=== PATIENT | female | born 1945 | race Caucasian/White ===

== ENCOUNTER → 2023-06-21 10:49 | Outpatient (REF) | payer MEDICARE, SELFPAY ==
[2023-06-21 11:11] LABS: % Basophils 0.5 % (0-2); % Eosinophils 1.7 % (0-6); % Immature Granulocytes 0.3 % (0-0.5); % Lymphocytes 17.6 % (20.5-51.1); % Monocytes 7.3 % (1.7-9.3); % Neutrophils 72.6 % (42.2-75.2); Absolute Eosinophils 0.2 10^3/uL (0-0.7); Absolute Lymphocytes 1.5 10^3/uL (1.2-3.4); Absolute Monocytes 0.6 10^3/uL (0.1-0.6); Absolute Neutrophils 6.3 10^3/uL (1.4-6.5); Hematocrit 43.6 % (37.0-47.0); Hemoglobin 14.9 g/dL (12.0-16.0); Mean Corp Hgb Conc. 34.2 g/dL (33.0-37.0); Mean Corpuscular Hgb 29.6 pg (27.0-31.0); Mean Corpuscular Volume 86.7 fL (81.0-99.0); Mean Platelet Volume 9.4 fL (7.4-10.4); Nucleated Red Blood Cells % 0 %; Platelet Count 281 10^3/uL (130-400); Red Blood Cell Count 5.03 10^6/uL (4.20-5.40); Red Cell Dist. Width 14.2 % (11.5-14.5); White Blood Cell Count 8.6 10^3/uL (4.8-10.8)
[2023-06-21 12:21] LABS: ALT (SGPT) < 10 U/L (0-35); AST (SGOT) 22 U/L (14-36); Albumin 4.2 g/dl (3.5-5.0); Alkaline Phosphatase 73 U/L (38-126); Blood Urea Nitrogen 22 mg/dl (7-17); Calcium 9.8 mg/dl (8.4-10.2); Carbon Dioxide 26 mmol/L (22-30); Chloride 106 mmol/L (98-107); Glucose 100 mg/dl (70-99); Potassium 4.7 mmol/L (3.5-5.1); Sodium 137 mmol/L (135-145); Total Bilirubin 0.6 mg/dl (0.2-1.3); Total Protein 6.7 g/dl (6.3-8.2); eGFR 57.31
[2023-06-23 07:54] LABS: ANA, IgG Reflex to HEp-2 None Detected (None Detected)
[2023-06-23 15:26] LABS: SSA 52 (Ro)(ENA) Ab, IgG 1 AU/mL (0-40); SSA 60 (Ro)(ENA) Ab, IgG 0 AU/mL (0-40); SSB (La)(ENA) Ab, IgG 0 AU/mL (0-40)
== END ==
LOC: RAD 10:49
PROVIDERS: ATTENDING PHYSICIAN Internal Medicine Rheumatology; FAMILY PHYSICIAN Internal Medicine
DX: M35.00 Sjogren syndrome, unspecified (principal); M81.0 Age-related osteoporosis without current pathological fracture; Z51.81 Encounter for therapeutic drug level monitoring; S22.000S Wedge compression fracture of unspecified thoracic vertebra, sequela
CPT/HCPCS: 36415; 72072; 72110; 80053; 85025; 86038; 86140; 86235

== ENCOUNTER → 2023-08-23 07:30 | Outpatient (REF) | payer MEDICARE, SELFPAY ==
[2023-08-23 08:44] LABS: % Basophils 0.4 % (0-2); % Eosinophils 1.8 % (0-6); % Immature Granulocytes 0.2 % (0-0.5); % Lymphocytes 20.4 % (20.5-51.1); % Monocytes 8.7 % (1.7-9.3); % Neutrophils 68.5 % (42.2-75.2); Absolute Eosinophils 0.2 10^3/uL (0-0.7); Absolute Lymphocytes 1.7 10^3/uL (1.2-3.4); Absolute Monocytes 0.7 10^3/uL (0.1-0.6); Absolute Neutrophils 5.7 10^3/uL (1.4-6.5); Hemoglobin 14.6 g/dL (12.0-16.0); Mean Corpuscular Hgb 29.9 pg (27.0-31.0); Mean Corpuscular Volume 88.1 fL (81.0-99.0); Mean Platelet Volume 9.8 fL (7.4-10.4); Nucleated Red Blood Cells % 0 %; Platelet Count 271 10^3/uL (130-400); Red Blood Cell Count 4.88 10^6/uL (4.20-5.40); Red Cell Dist. Width 14.5 % (11.5-14.5); White Blood Cell Count 8.3 10^3/uL (4.8-10.8)
[2023-08-23 09:27] LABS: ALT (SGPT) < 10 U/L (0-35); AST (SGOT) 18 U/L (14-36); Alkaline Phosphatase 59 U/L (38-126); Blood Urea Nitrogen 21 mg/dl (7-17); Calcium 9.1 mg/dl (8.4-10.2); Carbon Dioxide 23 mmol/L (22-30); Chloride 104 mmol/L (98-107); Glucose 84 mg/dl (70-99); LDH 177 U/L (120-246); Potassium 4.3 mmol/L (3.5-5.1); Sodium 134 mmol/L (135-145); Total Bilirubin 0.4 mg/dl (0.2-1.3); Total Protein 6.5 g/dl (6.3-8.2); eGFR 57.31
[2023-08-23 09:33] LABS: Vitamin D, 25-OH*** 59.1 ng/mL (30-80)
== END ==
LOC: RAD 07:30
PROVIDERS: ATTENDING PHYSICIAN Internal Medicine Hematology & Oncology; FAMILY PHYSICIAN Internal Medicine; REFERRING PHYSICIAN Physician Assistant
DX: C50.411 Malignant neoplasm of upper-outer quadrant of right female breast (principal); C85.89 Other specified types of non-Hodgkin lymphoma, extranodal and solid organ sites; M80.08XA Age-related osteoporosis with current pathological fracture, vertebra(e), initial encounter for fracture; G62.9 Polyneuropathy, unspecified; H54.7 Unspecified visual loss; M35.00 Sjogren syndrome, unspecified; M81.0 Age-related osteoporosis without current pathological fracture; S22.000S Wedge compression fracture of unspecified thoracic vertebra, sequela; Z51.81 Encounter for therapeutic drug level monitoring; Z68.29 Body mass index [BMI] 29.0-29.9, adult; Z85.72 Personal history of non-Hodgkin lymphomas
CPT/HCPCS: 36415; 71260; 74177; 80053; 82306; 83615; 85025; Q9967

== ENCOUNTER → 2023-12-15 09:28 | Outpatient (REF) | payer MEDICARE, SELFPAY | LOC: RAD 09:28 | PROVIDERS: ATTENDING PHYSICIAN Physician Assistant; FAMILY PHYSICIAN Internal Medicine | DX: M81.0 Age-related osteoporosis without current pathological fracture (principal) | CPT/HCPCS: 77080 ==

== ENCOUNTER → 2024-02-28 14:41 | Outpatient (REF) | payer MEDICARE, SELFPAY ==
[2024-02-28 15:31] LABS: Blood Urea Nitrogen 13 mg/dl (7-17); Calcium 11.2 mg/dl (8.4-10.2); Carbon Dioxide 24 mmol/L (22-30); Chloride 104 mmol/L (98-107); Glucose 116 mg/dl (70-99); Potassium 4.2 mmol/L (3.5-5.1); Sodium 141 mmol/L (135-145); eGFR > 60.00
== END ==
LOC: RAD 14:41
PROVIDERS: ATTENDING PHYSICIAN Family Medicine; OTHER PHYSICIAN Internal Medicine Hematology & Oncology
DX: R06.09 Other forms of dyspnea (principal)
CPT/HCPCS: 36415; 71275; 80048; Q9967

== ENCOUNTER 2024-02-28 19:32 | Inpatient (IN) | payer MEDICARE, SELFPAY ==
[2024-02-28] VITALS (8 sets, daily range): BP systolic 101–174; BP diastolic 62–105
--- NOTE | 2024-02-28 17:09 | ED TECH ---
A PERT ALERT was called #[id number]# @17:10 pm Per
--- NOTE | 2024-02-28 17:19 | HPS.HSE ---
Family Physician
-
Family Physician: Maggie Pressley MD
Chief Complaint
-
sob
History of Present Illness
78 year old with PMH for HTn, Lymphomas presented to us with sob since Tuesday. sob worse with exertion.denied chest pain, fever, chills, runny nose, congestion and cough.denied ROGERS,dizzy or syncopal episode. denied abdominal pain,n,v,d. denied
dysuria or hematuria. patient denied any recent travel. denied any procedures. denied any swelling in her leg.
patient underwent CT chest which showed PE. initiated on heparin drip.admitting for further managment.
Medical History
Past Medical History
Past Medical History: Reports Other
Additional Past Medical History:
HLD
aortic vave insufficiency
small B-Cell lymphoma
htn
macular degeneration of b/l Eye
osteoporosis
right breast cancer
Goiter
Past Surgical History: Reports Other
Additional Past Surgical History:
right breast lumpectomy
left lumpectomy
Tubal ligation
bilateral cataract surgery
tonsillectomy
adenoidectomy
Social History
Tobacco: Non-smoker
Alcohol: Occasional
Drug: None
Personal: Single
Living: With Family
Family History
Family History: Not pertinent
Allergies / Home Medications
Allergies reflects when Allergies were last updated in [facility].
Home Medications with original date entered in [facility]
Allergy/Medication List:
Allergies
Allergy/AdvReac Type Severity Reaction Status Date / Time
Penicillins Allergy Hives; Verified 04/04/20 09:31
tolerated
cefazolin
Sulfa (Sulfonamide Allergy Hives Verified 04/03/20 21:47
Antibiotics)
Home Medications
lisinopril 40 mg tablet 40 mg PO DAILY Blood pressure 05/21/17
calcium 600 mg-D3 20 mcg-magnesium 50 gn-Ky-osgprd-jessica-boron tablet (Calcium 600-D3 Plus (mag-zinc)) 1 ea PO BID Supplement 06/26/17
omega 6-nvw-mln-fish oil 300 mg-1,000 mg capsule (Fish Oil) 1 ea PO BID Supplement 06/26/17
vitamins A,C,G-ijub-vtkamn 2,148 mcg-113 mg-45 mg-17.4 mg tablet (PreserVision AREDS) 1 tab PO BID ##0 06/26/17
amlodipine 10 mg tablet 10 mg PO DAILY Blood pressure 04/05/20
coenzyme Q10 100 mg capsule (Co Q-10) 100 mg PO DAILY 02/28/24
denosumab 60 mg/mL subcutaneous syringe (Prolia) 60 mg SC [id number] 02/28/24
red yeast rice 600 mg tablet 600 mg PO DAILY 02/28/24
therapeutic multivitamin 1 tab PO DAILY 02/28/24
Review of Systems
-
Constitutional: Reports No Symptoms
EENT: Reports No Symptoms
Respiratory: Reports Trouble Breathing
Cardiac: Reports No Symptoms
Abdomen/GI: Reports No Symptoms
: Reports No Symptoms
Musculoskeletal: Reports No Symptoms
Skin: Reports No Symptoms
Neurological: Reports No Symptoms
Endocrine: Reports No Symptoms
Hematologic/Lymphatic: Reports No Symptoms
Psych: Reports No Symptoms
Physical Exam
Vital Signs
Vital Signs
Temp Pulse Resp BP Pulse Ox
98.5 F 115 16 174/105 93
02/28/24 16:50 02/28/24 16:50 02/28/24 16:50 02/28/24 16:50 02/28/24 16:50
Physical Exam
General: Well Developed, Well Nourished and No Apparent Distress
HEENT: NormoCephalic, Moist mucous membranes and Atraumatic
Respiratory: Clear
Cardiac: S1/S2 and Regular Rhythm; No Murmur or Rub
GI: Soft, Non Tender, Non Distended and Normal Bowel Sounds; No Organomegaly
Rectal: Deferred by Provider
Musculoskeletal: No Clubbing, No Cyanosis and No Edema
Skin: No Rash
Neuro: AO x 3 and Nonfocal/grossly intact
Psych: Calm
Data Reviewed
-
CT Scan: Report Reviewed by me
Lab Data: Labs Reviewed by me
Impression/Plan
-
#pulmonary Embolism
-iv heparin drip
-CT with PE
-ECHO pending
-pulmonary consulted
-keep NPO after MN for suction thrombectomy and /or CDT
#Essential hypertension
- Continue Norvasc with hold parameter
-hold lisinopril
#elevated trop likely demand ischemia
-trend trop
-no c/o of chest pain
-EKg with sinus tachycardia
#Breast cancer status post lumpectomy
#hxt of lymphoma
-follow[facility].
#Code status: DNR
[2024-02-28 17:22] LABS: % Basophils 0.2 % (0-2); % Eosinophils 0.2 % (0-6); % Immature Granulocytes 0.3 % (0-0.5); % Lymphocytes 14.4 % (20.5-51.1); % Monocytes 4.3 % (1.7-9.3); % Neutrophils 80.6 % (42.2-75.2); Absolute Lymphocytes 1.5 10^3/uL (1.2-3.4); Absolute Monocytes 0.5 10^3/uL (0.1-0.6); Absolute Neutrophils 8.5 10^3/uL (1.4-6.5); Hematocrit 44.4 % (37.0-47.0); Hemoglobin 15.6 g/dL (12.0-16.0); Mean Corp Hgb Conc. 35.1 g/dL (33.0-37.0); Mean Corpuscular Hgb 29.7 pg (27.0-31.0); Mean Corpuscular Volume 84.6 fL (81.0-99.0); Mean Platelet Volume 9.9 fL (7.4-10.4); Nucleated Red Blood Cells % 0 %; Platelet Count 254 10^3/uL (130-400); Red Blood Cell Count 5.25 10^6/uL (4.20-5.40); Red Cell Dist. Width 14.3 % (11.5-14.5); White Blood Cell Count 10.5 10^3/uL (4.8-10.8)
[2024-02-28 17:32] LABS: INR 1.03; PT 13.3 Sec (11.4-14.6)
[2024-02-28 17:33] LABS: APTT 31.7 Sec (23.4-35.0)
[2024-02-28 17:41] LABS: Blood Urea Nitrogen 12 mg/dl (7-17); Calcium 11.2 mg/dl (8.4-10.2); Carbon Dioxide 20 mmol/L (22-30); Chloride 103 mmol/L (98-107); Estimated Creatinine Clearance 50 ml/min; Glucose 111 mg/dl (70-99); Sodium 140 mmol/L (135-145); eGFR > 60.00
[2024-02-28] MEDS: HEPARIN 5600 UNITS IV (17:56)
[2024-02-28 17:57] LABS: NT-proBNP 5940 pg/ml; Troponin I 0.075 ng/ml
[2024-02-28] MEDS: HEPARIN 25000 UNITS/250 ML IV (17:57)
--- NOTE | 2024-02-28 18:02 | ED.GENMED ---
History of Present Illness
General
Chief Complaint: Breathing Problem
Source: patient and family
Exam Limitations: none
Time Seen by Provider: 02/28/24 16:51
Nursing documentation reviewed up to this point in time: agreed with
History of Present Illness
History of Present Illness:
78-year-old female with a past medical history of hypertension, distant history of lymphoma who presents to the emergency room for evaluation of shortness of breath�was found to have pulmonary embolism on outpatient imaging. Patient reports that
she started feeling short of breath on Tuesday evening and it has been constant and generally worsening since then. She reports shortness of breath primarily with exertion�she cites walking up the steps as primary example. She says that she also
has some mild associated dizziness when her symptoms are severe. She has minimal shortness of breath at rest. She denies any chest pain. She denies syncope. She denies palpitations. She has not had any swelling or pain in the legs. She denies
any recent travel or surgeries. She denies any known history of DVT/PE. She saw her primary doctor today and was referred for an outpatient CT of her chest and was referred to the ER after it was positive for a saddle pulmonary embolism.
Past History
Past History
ED Past Medical History: HTN and Other (Macular degeneration)
ED Past Surgical History: Gynecological (Breast biopsy, left breast lumpectomy) and Other (Thyroid nodule biopsy 06/15/2017)
Social History
Tobacco: Non-smoker
Alcohol: None
Review of Systems
Review of Systems
All Other Systems: ROS reviewed and negative except as documented in HPI and ROS
Constitutional: Reports fatigue; Denies fever or chills
Respiratory: Reports trouble breathing; Denies cough
Cardiac: Denies chest pain or palpitations
ABD/GI: Denies abdominal pain, nausea or vomiting
: Denies flank pain
Musculoskeletal: Denies edema, neck pain or back pain
Neurological: Reports dizzy; Denies headache
Phy Exam
Physical Exam
Physical Exam:
General: Awake, alert, oriented x3; no acute distress
Head: Normocephalic, atraumatic
Eyes: Conjunctiva normal, sclera anicteric
Throat: Airway intact, handling secretions
Neck: Trachea midline, supple without meningismus
Lungs: Clear to auscultation bilaterally, no wheezing, rales, rhonchi
Heart: Tachycardia with regular rhythm, no murmurs, gallops, or rubs; right chest wall tunneled catheter in place
Abd: Soft, non distended, nontender
Neuro: No gross deficits
Skin: no rash
Extremities: No edema in extremities, equal pulses in all extremities
Scores
Heart Failure Risk
Heart Failure Risk Score: Not Applicable
Heart Score for Chest Pain Patients
STEMI patient?: Not applicable
Withdrawal Assessment of Alcohol
Withdrawal Assessment Completed?: Not applicable
Course
Orders/Labs/Results
Orders:
Orders
02/28/24 16:43
Electrocardiogram (*1) Urgent
Reason for Study: Shortness of Breath
EKG- Treatment ONCE
02/28/24 17:09
Consult Pulmonary [PULMONARY CONSULT] Urgent
Consulting Provider: Norman Zee
Was physician already notified: Yes
02/28/24 17:15
Basic Metabolic Panel Urgent
Complete Blood Count/With Diff Urgent
NT-proBNP Urgent
PTT Urgent
Prothrombin Time Urgent
Troponin I Urgent
02/28/24 17:30
Heparin 5,600 units IV NOW STA
Heparin 79805 Units/250 ml 25,000 units in 250 ml IV PER PROTOCOL
Weight to be used for heparin protocol in kilograms (kg):: 70.2
Protocol:: DVT/PE
PTT Goal Range to be used:: PTT 73 to 111 seconds
Order type:: Initial
INITIAL Infusion Dose (UNITS/KG/hr) & then follow protocol:: 18 units/kg/hr
Infusion Dose in UNITS/hr & then follow protocol (UNITS/hr):: 1,300
INFUSION RATE in mL/hr & then follow protocol (mL/hr):: 13
For DVT/PE algorithm, re-bolus for low PTT?: Yes
PTT less than or equal to 64 seconds:: Re-bolus 80 units/kg (max 10,000units). Increase by 300 units/hr
(+ 3mL/hr)
PTT 64.1 to 72.9 seconds:: Re-bolus 40 units/kg (max 5,000 units). Increase by 100 units/hr
(+ 1mL/hr)
PTT 73 to 111 seconds:: Target Range. No change in rate.
PTT 111.1 to 130.9 seconds:: Decrease rate by 100 units/hr (- 1 mL/hr)
PTT 131 to 199.9 seconds:: HOLD for 1 hr. Then decrease by 200 units/hr (- 2mL/hr)
PTT greater than or equal to 200 seconds:: HOLD for 2 hrs & Notify Provider. Then decrease by 300 units/hr
(- 3mL/hr)
Lab follow-up:: Each change, PTT q6h until 2 consecutive are therapeutic. Then
PTT daily.
Nursing to Place Non Medication Order As Directed
Physician Order: PTT 6 hours after initial start of Heparin infusion
02/28/24 17:34
Echo 2D MMode Color/Doppler Urgent
Reason for Study: saddle PE
Cardiology Consult: Chuy Trivedi
02/28/24 17:48
Heparin 2,800 units IV PRN PRN
Heparin 5,600 units IV PRN PRN
Abnormal Lab Results
02/28/24
17:15
Absolute Neuts (auto) 8.5 H 10^3/uL
(1.4-6.5)
Neutrophils % 80.6 H %
(42.2-75.2)
Lymphocytes % 14.4 L %
(20.5-51.1)
Carbon Dioxide 20 L mmol/L
(22-30)
Glucose 111 H mg/dl
(70-99)
Calcium 11.2 H mg/dl
(8.4-10.2)
Troponin I 0.075 H* ng/ml
02/28/24 17:15
02/28/24 17:15
Vital Signs
Initial and Last Documented VS:
Initial Vital Signs
Temp Pulse Resp BP Pulse Ox
36.9 C 115 16 174/105 93
02/28/24 16:50 02/28/24 16:50 02/28/24 16:50 02/28/24 16:50 02/28/24 16:50
Last Documented Vital Signs
Temp Pulse Resp BP Pulse Ox
36.9 C 103 18 146/96 95
02/28/24 16:50 02/28/24 17:30 02/28/24 17:30 02/28/24 17:14 02/28/24 17:30
MDM/Problems Addressed
Differential Diagnosis Includes:
Saddle PE
MDM/Problems Addressed:
78-year-old female presents to the emergency room for shortness of breath, found to have saddle PE on outpatient imaging. Reviewed the CTA report done just prior to ER arrival�rather large saddle PE. Will place large-bore IV send labs including
CBC and CMP, coags, troponin, proBNP. Will start on heparin infusion. EKG shows sinus tachycardia. PERT alert was called after her initial assessment�pending discussion with pulmonary.
Case discussed with pulmonary�agreed with heparin infusion, ICU mission. Recommended stat echocardiogram. Pulmonary reached out to interventional radiology to make him aware of the case�no intervention planned imminently as patient's hemodynamics
have been stable however will reassess pending echocardiogram need for lysis. I did reach out to the on-call tablet technician as well as cardiology to facilitate echocardiogram.
Labs reviewed: CBC and CMP unremarkable. Troponin and BNP elevated consistent with degree of heart strain. test cell technician at bedside performing study. Will admit to ICU for continued management�Case discussed with hospitalist for admission.
*Radiology
Radiology exam reviewed: radiology read reviewed
*Pulse Oximetry
Patient hypoxic: no
*EKG
Interpreted by ED Provider?: Yes
Heart Rate: 104
Rate: tachycardiac
Rhythm: sinus tachycardia
[place]: normal axis
Interval: normal interval
QRS Pattern: normal QRS
Ischemia: non-specific ST changes
*Critical Care Note
Total Time (30-74mins, 75-104mins- exclusive of procedures): 32
comment:
Critical care statement: A total of 32 minutes of critical care time was provided for this patient. This includes management of unstable vital signs, evaluation of the patient at bedside, frequent reassessment, discussion with
consultants/hospitalist, and review of pertinent medical records. This time was separate from time utilized to perform any aforementioned documented procedures
Data Reviewed
Source: patient, records, family and physician (Discussed with radiologist)
Patient Management
Discussion with other providers: Hospitalist (Discussed with hospitalist), Painting Technician (Discussed with explosive ordnance specialist, discussed with software product specialist) and Radiologist (Discussed with radiologist)
Escalation/DeEscalation of care consider admission/obs:
ICU admission indicated
ED Attending Note
-
Portions of this chart may have been created with voice recognition software.� Occasional wrong word or��sound alike� substitutions may have occurred due to the inherent limitations of voice recognition software.
Discharge Plan
Departure
Patient Disposition: Admit
Date of Disposition: 02/28/24
Time of Disposition: 18:01
Admit to: ICU
Admit to doctor: Leticiay
Presentation/result/management discussed w/ accepting MD/DO: Hospitalist
Condition: Critical
Discharge Problem:
Acute saddle pulmonary embolism
Prescriptions:
No Action
lisinopril 40 MG tablet
40 mg PO DAILY
omega 1-npl-osk-fish oil [Fish Oil] 1 EACH capsule
1 ea PO BID
PreserVision AREDS 2,148 mcg-113 mg-45 mg-17.4mg Tablet
1 tab PO BID Qty: 0
Ca-D3-mag uf-ksuw-won-ricardo-bor [Calcium 600-D3 Plus (mag-zinc)] 1 EACH tablet
1 ea PO BID
amlodipine 10 MG tablet
10 mg PO DAILY
Theragen Tablet
1 tab PO DAILY
coenzyme Q10 [Co Q-10] 100 mg Capsule
100 mg PO DAILY
Prolia 60 mg/mL Syringe
60 mg SC [id number]
Patient Comments:
02/28/2024: Due Mar 12 2024
red yeast rice 600 mg Tablet
600 mg PO DAILY
Referrals:
Maggie Pressley MD [Family Provider] -
Interventions
Interventions:
*Risk Screen - Suicide Last Done: 02/28/24 16:50
*General Assessment Last Done: 02/28/24 16:50
*Neglect/Abuse Screening Last Done: 02/28/24 16:50
*ED COVID-19 Vaccine History Last Done: 02/28/24 16:50
ED- Cardiac Assessment Last Done: 02/28/24 18:01
ED- Pulmonary Assessment Last Done: 02/28/24 18:01
Discharge Date and Time
Print Language: CITIZEN OF [place]
--- NOTE | 2024-02-28 18:38 | W.PN.UPDATE ---
Addendum entered and electronically signed by Ayden Aguilera MD 02/28/24 19:14:
Addendum
TTE
Looks like RV strain with moderate pulmonary hypertension suspected LB looks small and underfilled.
Stroke volume index is low suggesting possibly low cardiac output. Is there RV strain on the CTA.?
Original Note:
Update Note
Progress Note Update
This note serves as an addendum to the H&P by worsted winder RICARDO Ceci DE [place] SANTOS
HPI
78F Non smoker HX Lymphoma, HTN with reports worsening SoB with exertion like flights of stairs and progressed to Sob at rest
- mild associated dizziness when her symptoms are severe.
- No prior HX PE . denies any chest pain, denies syncope, denies palpitation denies swelling or pain in the legs.
- OP CT POS for saddle PE
Reviewed VS: HR 99 BP 137/77
PE
Gen:NAD
HEENT: anicteric
Neck:
Lungs: symmetric AE, no rub or rhonchi
Cor: borderline ST , normotensive
Abdomen: soft abdomen
ELECTRONIC CONTROLS REPAIRER SUPERVISOR: AAO3
MS:no edema
Psych: approriate
Data
Unremarkable CBC
CO2 20
nl Cr nl eGFR
Ca 11.2
TPNI 0.075
pro BNP 5940
EKG
SINUS TACHYCARDIA
NONSPECIFIC ST AND T WAVE ABNORMALITY
ABNORMAL ECG
WHEN COMPARED WITH ECG OF 04-APR-2020 01:28,
NO SIGNIFICANT CHANGE WAS FOUND
OP CTC PE study
There is a saddle embolus straddling the posterior bifurcation of the right and left main pulmonary arteries.
On the right, there is embolus which extends into the right upper lobe, right middle lobe, and right lower lobe pulmonary artery branches.
On the left, there is embolus which extends into the left upper lobe lingular, and lower lobe pulmonary artery branches.
The right ventricle is enlarged compared to the left ventricle, and suggests right heart strain.
Coronary artery calcifications are noted. Please correlate with symptoms of and risk factors for coronary artery disease, with further workup as clinically appropriate. There is mild to moderate atherosclerotic disease of the thoracic aorta with no
aneurysm.
There is no significant pleural effusion. There is no significant pericardial effusion.
Mild elevation of the left hemidiaphragm.
Mild atelectasis in the posterior lower lungs. No CT findings to suggest a focal area of pulmonary infarction.
No significant abnormality within the visualized upper abdomen.
No evidence for dominant nodule from the thyroid gland. There are no significantly enlarged mediastinal, hilar, or axillary lymph nodes.
Mild compression deformity of T11, stable from previous examination. No evidence for new compression fracture.
Deformity of sternum, stable, compatible with old fracture.
Last hospitalist admission:
ASSESSMENT & PLAN
Acute saddle PE ; PERT alert
CT suggest RH strain pattern
Hemodynamically stable so far
- Case ER attd discussed with pulmonary�agreed with heparin gtt
- stat ECHO - pending to be read by Card
- Per [facility]: they are aware (Dr. Bull) and if vitals change or echo very abnormal would consider for lysis.
- Non urgent Lauren US
- Hold Vit with E
- NPO after MN
- IR may take her tomorrow for suction thrombectomy and/or CDT
- For F cath
- PERT alert Consult: Pul, IR and CBC card
Essential HTN
- cont Lisinopril hold index if SBP < 110
- hold amlodipine
HX Lymphoma in chest Dxed in Apr 2019 : Received Chemo and ? XRT - Partially treated but not completely cure pr patient. Follow with [facility] ( DR Alvarenga)
HX Rt breast CA s/p lumpectomy . Not on chemo.
DVT Px: on Heparin gtt
Full code
ICU
Total Critical Care Time__45___ minutes.
I was immediately available to the patient and staff. I personally examined, reviewed labs, diagnostic images/reports, interpretations, treatment plans, discussed patient care with other providers and family or caregivers (if patient is unable to
make decisions), entered orders as appropriate and documented the medical record.
--- NOTE | 2024-02-28 19:21 | EDRN ---
Report received, introduced myself to patient who is aware orders are in and we are waiting on a bed.
[2024-02-28] MEDS: NSS 1000 IV (20:47)
[2024-02-28] MEDS: TYLENOL 650 MG PO (21:38)
[2024-02-28] MEDS: NON-FORMULARY ITEM 1 UNIT PO (21:39)
--- NOTE | 2024-02-28 22:16 | PTCARENOTE ---
Received patient AAOx3, following commands, denying pain. Sinus tach 100s-110s, BP 110s/70s, normothermic. Palpable pedal and radial pulses b/l. 87-89% on room air, now 94% on 2 liters, denies SOB or difficulty breathing. Abdomen soft, round,
hypoactive bowel sounds, NPO after midnight. Lawson in place for critical I&Os draining yellow urine. 2 PIVs patent, WNL, heparin gtt and IVF gtt ongoing per protocol. Warm blankets provided, call minaya within reach.
[2024-02-28 22:54] LABS: Troponin I 0.062 ng/ml
[2024-02-28 23:36] LABS: APTT > 200 Sec (23.4-35.0)
[2024-02-29] VITALS (27 sets, daily range): BP systolic 76–144; BP diastolic 44–83; BMI 27.8
--- NOTE | 2024-02-29 00:08 | PTCARENOTE ---
PTT >200, DAM WORKER notified, heparin on hold for 2 hours per protocol. Otherwise patient assessment unchanged from previous, call minaya within reach.
--- NOTE | 2024-02-29 02:36 | PTCARENOTE ---
BP soft while patient sleeping, 70s-80s/50s-60s with MAPs in the 60s. When awake, pressure back up to 90s/60s. MAINTENANCE AND CUSTODIAN SUPERVISOR notified, increased IVF to 100 ml/hr. Otherwise patient assessment unchanged from previous, call minaya within reach.
[2024-02-29] MEDS: NSS 250 IV (05:02)
[2024-02-29 05:14] LABS: Hematocrit 37.3 % (37.0-47.0); Hemoglobin 13.4 g/dL (12.0-16.0); Mean Corp Hgb Conc. 35.9 g/dL (33.0-37.0); Mean Corpuscular Hgb 30.8 pg (27.0-31.0); Mean Corpuscular Volume 85.7 fL (81.0-99.0); Platelet Count 204 10^3/uL (130-400); Red Blood Cell Count 4.35 10^6/uL (4.20-5.40); Red Cell Dist. Width 14.1 % (11.5-14.5); White Blood Cell Count 12.9 10^3/uL (4.8-10.8)
[2024-02-29] MEDS: NSS 1000 IV ×2 (05:21→17:19)
--- NOTE | 2024-02-29 05:21 | PTCARENOTE ---
Urine output steadily decreasing, MIX CHEMIST notified, 250 ml bolus given, labs sent.
[2024-02-29 06:15] LABS: Blood Urea Nitrogen 13 mg/dl (7-17); Calcium 9.1 mg/dl (8.4-10.2); Carbon Dioxide 17 mmol/L (22-30); Chloride 110 mmol/L (98-107); Estimated Creatinine Clearance 43 ml/min; Glucose 104 mg/dl (70-99); Potassium 3.9 mmol/L (3.5-5.1); Sodium 142 mmol/L (135-145); eGFR > 60.00
--- NOTE | 2024-02-29 06:43 | W.PN.HOSP.TC ---
Today's Communication/Plan
-
c/w high dose heparin gtt protocol
will reach out to IR, Keep NPO for now
Assessment / Plan
Assessment / Plan
Physical Exam
General: Well Developed, Well Nourished and No Apparent Distress
HEENT: Normocephalic, Moist mucous membranes and Atraumatic
Respiratory: no wheezes, Clear
Cardiac: S1/S2 , tachycardia
GI: Soft, Non Tender, Non Distended
Rectal: Deferred by Provider
Musculoskeletal: No Clubbing, No Cyanosis and No Edema
Skin: No Rash
Neuro: AO x 3 and Nonfocal/grossly intact
Psych: Calm
#Acute respiratory distress due to saddle pulmonary Embolism without signs of cor-pulmonale
She seems to have no symptoms while resting
She denied chest pain
Seems on low O2
c/w IV heparin drip
-ECHO c/w Right ventricle is dilated and hypokinetic. LVEF 55%. Mild LVH.
Positive troponin
-keep NPO after MN for suction thrombectomy and /or CDT
Check LE US
Appreciate pulmonary/ IR input
#Essential hypertension
- Continue Norvasc with hold parameter
-hold lisinopril
#elevated trop likely c/w demand ischemia/ Type II AL
No chest pain
EKG normal SR , no changes to ST segments
#Breast cancer status post lumpectomy
#hxt of lymphoma
-follow[facility].
#Code status: DNR
Total time spent to see the patient, examine the patient on the floor, review data and lab results, discuss treatment plan with patient, nursing staff around 55 minutes
Anticipated Discharge: > 48 hours
Subjective/Interval History
-
Date of Service: February 29, 2024
She denies chest pain/sob
Objective Data
-
Labs:
Laboratory Results
02/28/24 02/29/24 02/29/24
23:01 04:53 07:40
WBC 12.9 H
Hgb 13.4
Hct 37.3
Plt Count 204
APTT > 200 H* Pending
Sodium 142
Potassium 3.9
Chloride 110 H
Carbon Dioxide 17 L
BUN 13
Creatinine 0.9
Glucose 104 H
Calcium 9.1 D
02/29/24
23:13
WBC
Hgb
Hct
Plt Count
APTT Pending
Sodium
Potassium
Chloride
Carbon Dioxide
BUN
Creatinine
Glucose
Calcium
Vital Signs:
Vital Signs
Temp Pulse Resp BP Pulse Ox
98.6 F 88 16 103/58 95
02/29/24 03:20 02/29/24 06:15 02/29/24 06:15 02/29/24 06:00 02/29/24 06:15
I&O
02/27/24 02/28/24 02/29/24
06:59 06:59 06:59
Intake Total 1264 / 1264
Output Total 259 / 259
Balance 1005 / 1005
[2024-02-29] MEDS: NON-FORMULARY ITEM 1 UNIT PO ×3 (07:30→17:20)
[2024-02-29] MEDS: NORVASC PO (07:52)
--- NOTE | 2024-02-29 08:00 | PTCARENOTE ---
Received pt awake and alert.Speech is appropriate.Repositions self in bed.Denies pain.Declines AM care at this time.SR noted.IVF and Heparin gtt infusing.Lungs CTA,O2 2l NC.Denies SOB.NPO.No BM.Lawson draining yellow urine.Skin integrity as
documented.Plan of care discussed.
--- NOTE | 2024-02-29 08:27 | CON.INTV ---
Addendum entered and electronically signed by Norman Zee MD 02/29/24 13:20:
Patient seen and examined independently by myself. Resident note reviewed below. Agree with assessment and plan
Patient is a very pleasant 78-year-old female with history of breast cancer, lymphoma status post chemotherapy. Symptoms started Tuesday prior to admission. Developed increased shortness of breath with activity along with some mild lightheadedness.
She contacted her primary physician in order CT chest angiogram which confirmed bilateral PE, saddle embolus. Upon arrival to [facility], found to be normotensive, requiring 2 L. Echocardiogram at the bedside showed dilated RV, PA
pressure 55, underfilled LV. Cardiac biomarkers are mildly elevated. Patient was immediately started on heparin therapy. PERT alert was called, images reviewed by myself and discussion ensued between myself, interventional radiology and ED staff.
Decision was made to continue with heparin therapy and reassess for catheter directed therapy as indicated. Throughout this, patient denies any leg pain, falls, syncope. She denies any recent changes in medications, recent travel
Note PESI score 140, Class V, up to 24% 30-day mortality in this group of patients.
Past medical history, family history, substrate as below. Allergies reviewed.
Review of systems as below
Vitals stable, transient hypotension through the night noted responded to IV fluids
Oxygenation remained stable, heart rate 90s to 100s
Chest exam is clear, cardiac exam unremarkable, abdominal exam benign. No lower extreme edema or calf tenderness
Data reviewed
CT chest with extensive bilateral PE, saddle embolus, RV/LV ratio greater than 1
A/P
Reviewed at length with patent pathophysiology of thromboembolic disease. At this time, she was provided options which include standard of care therapy, heparin therapy versus catheter directed intervention including thrombectomy and possible
thrombolysis. We reviewed risks and potential benefits.
She was also visited by interventional radiology.
Patient has decided to hold off on pursuing this. This was also reviewed at length with daughter at bedside
Okay to advance diet
Check lower extremity Dopplers
Continue heparin therapy
We will keep n.p.o. after midnight to reassess potential need for CDT therapy
Okay to continue IV fluid boluses as needed. Follow urine output, creatinine
Will consult oncology. Patient well-known to Dr. Alvarenga
The above reviewed at length with patient, daughter at bedside
Reviewed with critical care nursing, respiratory care, pharmacy, primary service
TCCT 40 min
Original Note:
Consultation
Consultation Request
Date/Time Consultation Requested: 02/28
Date/Time Consultation Performed: 8:30
Medical History
-
Chief Complaint: SOB, Saddle PE on outpatient CT
History of Present Illness:
Patient is a 78-year-old female, non-smoker, with past medical history of hypertension, lymphoma (diagnosed in 2018, received chemotherapy, is following with Dr. Alvarenga) and breast cancer (underwent lumpectomy, received radiation (or ?)
May). States she started to feel short of breath on Tuesday which was initially exertional but was progressing until she became short of breath at rest a day or two ago, so she visited her family doctor yesterday who ordered an outpatient CT.
outpatient CT scan showed saddle pulmonary emboli and she was brought to the ED. Denies history of recent long travel. Denies recent surgery. Denies history of DVT/PEs in herself but does mention her mom also had breast cancer and had DVTs due to
her cancer.
On admission, she did not have any chest pain, was not tachycardic, did not have any lower extremity edema. PERT alert was called and she received 5600 units of IV heparin stat followed by heparin drip. Hemodynamics were stable at the time of
admission and IR decided not to intervene for thrombolysis due to stable vital signs. Her trops and BNP were elevated (possibly demand ischemia). EKG was normal. TTE showed dilated and hypokinetic RV plus moderate pulmonary hypertension (50 to 55
mmHg), plus decreased LV filling. She was admitted to the ICU for further management.
This morning, her BPs are ranging between 90-105, not tachycardic and is saturating 99% on 2L O2. She had decreased urine output around 5 AM for which she received 250 cc bolus normal saline. Her output is currently 30 cc/h.
Past Medical History
Past Medical History: Cancer (Noted in HPI) and HTN
Social History
Tobacco: Non-smoker
Alcohol: None
Drug: None
Personal:
Living: With Family
Family History
Family History: Other (Noted in HPI)
Allergies / Home Medications
Allergies
Allergy/AdvReac Type Severity Reaction Status Date / Time
Penicillins Allergy Hives; Verified 04/04/20 09:31
tolerated
cefazolin
Sulfa (Sulfonamide Allergy Hives Verified 04/03/20 21:47
Antibiotics)
Home Medications
�Medication �Instructions �Recorded �Confirmed �Last Taken �Type
lisinopril 40 mg tablet 40 mg PO DAILY Blood pressure 05/21/17 02/28/24 02/28/24 History
calcium 600 mg-D3 20 mcg-magnesium 1 ea PO BID Supplement 06/26/17 02/28/24 02/28/24 History
50 nh-Lo-yzqdlc-jessica-boron
tablet (Calcium 600-D3 Plus
(mag-zinc))
omega 3-jwx-sia-fish oil 300 1 ea PO BID Supplement 06/26/17 02/28/24 02/28/24 History
mg-1,000 mg capsule (Fish Oil)
vitamins A,C,P-xhhp-demcct 2,148 1 tab PO BID ##0 06/26/17 02/28/24 02/28/24 History
mcg-113 mg-45 mg-17.4 mg tablet
(PreserVision AREDS)
amlodipine 10 mg tablet 10 mg PO DAILY Blood pressure 04/05/20 02/28/24 02/28/24 History
coenzyme Q10 100 mg capsule (Co 100 mg PO DAILY 02/28/24 02/28/24 02/28/24 History
Q-10)
denosumab 60 mg/mL subcutaneous 60 mg SC [id number] 02/28/24 02/28/24 6 Months Ago History
syringe (Prolia) ~08/29/23
red yeast rice 600 mg tablet 600 mg PO DAILY 02/28/24 02/28/24 02/28/24 History
therapeutic multivitamin 1 tab PO DAILY 02/28/24 02/28/24 02/28/24 History
Review of Systems
-
History Source: Patient
All other systems: Negative unless noted
Respiratory: Trouble Breathing
Cardiac: Chest Pain (Negative) and Palpitations (Negative)
Neuro: Dizzy (Negative)
Vitals / Labs / Diagnostic Testing
Vital Signs
Temp Pulse Resp BP Pulse Ox
98.6 F 88 16 104/61 95
02/29/24 03:20 02/29/24 06:15 02/29/24 06:15 02/29/24 07:52 02/29/24 06:15
Lab Data
02/29/24 04:53
02/29/24 04:53
Laboratory Results
02/28/24 02/28/24 02/29/24
17:15 23:01 07:50
PT 13.3
INR 1.03
APTT 31.7 > 200 H* 124.0 H
Diagnostic Testing:
Physical Exam
-
HEENT: Normocephalic, Anicteric and Moist Mucous Membranes
Cardiovascular: S1/S2, Regular Rhythm and Peripheral Edema (absent)
Respiratory: Clear and Other (Mildly hypoxic, requiring 2L O2)
GI: Soft, Non Distended, Non Tender and Normal Bowel Sounds
Neurology: Awake, Alert, Oriented and AO x 3
Skin: Warm and Dry
General: Comfortable and Good Appetite
Assessment
-
# Saddle PE most likely in the setting of malignancy
- Chest CT:There is a saddle embolus straddling the posterior bifurcation of the right and left main pulmonary arteries. On the right, there is embolus which extends into the right upper lobe, right middle lobe, and right lower lobe pulmonary artery
branches. on the left, there is embolus which extends into the left upper lobe lingular, and lower lobe pulmonary artery branches.The right ventricle is enlarged compared to the left ventricle, and suggests right heart strain.
-Receiving heparin at 900/hr
-Receiving normal saline at 100/h
-Chest x-ray this morning unremarkable for other acute cardiopulmonary disease
-IR visited patient this morning, planning on thrombectomy and /or CDT if patient agrees to procedure
-Currently n.p.o. for possible procedure in the afternoon, if patient decides to decline IR intervention, will advance diet
-PTT last checked was 124, will check again at 1430
-Ordered b/l LE Doppler US
# History of essential hypertension
-Amlodipine held this a.m. because blood pressures on the lower side
-Hold lisinopril for now
# Hypercalcemia
-Most likely in the setting of dehydration-resolved (currently 9.1)
# Mild leukocytosis
-Will monitor CBC
# Elevated trop and proBNP
-probably demand ischemia
-No chest pain, EKG normal this am
--- NOTE | 2024-02-29 12:49 | PTCARENOTE ---
Pt assessed.No change in assessment noted.Pt's daughter at bedside speaking to Dr Zee.
--- NOTE | 2024-02-29 13:04 | CON.CAR ---
Addendum entered and electronically signed by Luis Pierre MD 02/29/24 15:43:
I interviewed and examined the patient independently. I discussed the plan with resident MD Dr Dennis. I agree with the H/P, with any changes/additions per this addendum.
78 female with PMH of breast cancer, lymphoma presented to ED after outpatient chest pain showed saddle PE. She reports SOB. No chest pain. Exam with RRR, no murmurs, no edema. TnI peak 0.075. Echo: LVEF 55%, dilated RV with decreased function,
mild/mod TR, PASP 50-55%.
Acute PE with RV strain, mild/mod TR, pulm HTN. She will continue heparin drip for now. She may need thrombectomy for this life threatening PE. Once her PE is treated, I recommended repeat TTE as outpatient in 4 weeks. She wishes to have this
done with her PCP, and I discussed with her PCP to coordinate.
Acute non-ischemic myocardial injury in setting of acute PE. No additional cardiac testing recommended.
Please call us back with additional questions.
Original Note:
Consultation
Consultation Request
Date/Time Consultation Requested: 02/29/24
Date/Time Consultation Performed: 02/29/24
Requesting Provider: Dr Luis Pierre
Performing Provider: Dr Sabino Dennis
Reason for Consultation: RV strain due to saddle PE
Medical History
-
Chief Complaint: Shortness of breath
History of Present Illness:
78-year-old female with past medical history of hypertension left breast cancer s/p Lumpectomy, lymphoma diagnosed in 2019 underwent chemotherapy presented to the ED with shortness of breath. Patient reports of dyspnea on exertion which ultimately
progressed to dyspnea at rest and a day or 2. She saw her family physician, Dr. Maggie Pressley who ordered chest CT which showed acute saddle PE and she was sent to [facility] for immediate evaluation. Patient denies chest pain during the
event, palpitations, dizziness. Patient denies history of CHF, prior PE/DVT, CAD, PAD. On admission PERT alert, she received 56,000 units of IV heparin followed by heparin drip. Troponin and BNP were elevated on admission. TTE showed dilated
and hypokinetic right ventricle which was new, elevated PASP 50 to 55 mmHg, reduced LV filling. IR decided to hold thrombolysis due to patient's stable vital signs on admission.
Past Medical History
Past Medical History: Cancer (Left breast cancer, follicular lymphoma), HTN and Hypercholesterolemia
Past Surgical History: Other (right breast lumpectomy left lumpectomy Tubal ligation bilateral cataract surgery tonsillectomy adenoidectomy)
Social History
Tobacco: Non-Smoker
Alcohol: Occasional
Drug: None
Personal: Single
Living: With Family
Employment: Retired
Family History
Family History: Reviewed & Not Pertinent
Allergies / Home Medications
Allergy/AdvReac Type Severity Reaction Status Date / Time
Penicillins Allergy Hives; Verified 04/04/20 09:31
tolerated
cefazolin
Sulfa (Sulfonamide Allergy Hives Verified 04/03/20 21:47
Antibiotics)
�Medication �Instructions �Recorded �Confirmed �Type
lisinopril 40 mg tablet 40 mg PO DAILY Blood pressure 05/21/17 02/28/24 History
calcium 600 mg-D3 20 mcg-magnesium 1 ea PO BID Supplement 06/26/17 02/28/24 History
50 zk-Kk-esiirv-jessica-boron
tablet (Calcium 600-D3 Plus
(mag-zinc))
omega 6-jey-cmm-fish oil 300 1 ea PO BID Supplement 06/26/17 02/28/24 History
mg-1,000 mg capsule (Fish Oil)
vitamins A,C,K-iclg-qaknpp 2,148 1 tab PO BID Supplement ##0 06/26/17 02/28/24 History
mcg-113 mg-45 mg-17.4 mg tablet
(PreserVision AREDS)
amlodipine 10 mg tablet 10 mg PO DAILY Blood pressure 04/05/20 02/28/24 History
coenzyme Q10 100 mg capsule (Co 100 mg PO DAILY Supplement 02/28/24 02/28/24 History
Q-10)
denosumab 60 mg/mL subcutaneous 60 mg SC [id number] OSTEOPOROSIS 02/28/24 02/28/24 History
syringe (Prolia)
red yeast rice 600 mg tablet 600 mg PO DAILY Supplement 02/28/24 02/28/24 History
therapeutic multivitamin 1 tab PO DAILY Supplement 02/28/24 02/28/24 History
Review of Systems
-
All other systems: Negative unless noted
Physical Exam
Vital Signs
Temp Pulse Resp BP Pulse Ox
98.2 F 98 29 99/63 98
02/29/24 10:55 02/29/24 12:45 02/29/24 12:45 02/29/24 12:00 02/29/24 12:45
Lab Results
02/29/24 04:53
02/29/24 04:53
Troponin I 0.062 ng/ml H* 02/28/24 22:06
Jig-R-Hbpyirloywh Pept 5940 pg/ml 02/28/24 17:15
Physical Exam
General: No Apparent Distress, Comfortable and Other (NC 2 L O2)
HEENT: Normocephalic and Moist Mucous Membranes
Respiratory: Clear
Cardiac: S1/S2 and Regular Rhythm; Negative Murmur, Rub or Peripheral Edema
Musculoskeletal: No Edema
Neuro: AO x 3
Psych: Calm
Impression / Plan
-
78-year-old female with past medical history of hypertension left breast cancer s/p Lumpectomy, lymphoma diagnosed in 2019 underwent chemotherapy presented to the ED with shortness of breath. Patient reports of dyspnea on exertion which ultimately
progressed to dyspnea at rest and a day or 2. She saw her family physician, Dr. Maggie Pressley who ordered chest CT which showed acute saddle PE and she was sent to [facility] for immediate evaluation. Cardiology is consulted for evaluation
of new right ventricle strain due to PE.
Assessment and plan
Acute saddle PE
No signs of right side HF ( no peripheral edema, abdominal distension)
Denies CP, EKG normal
RV strain due to embolus
With treatment of embolus , right heart dilation will eventually normalize.
She is currently on 2 L of oxygen
Blood pressure soft 99/63. Monitor closely
Continue heparin drip
IR planning for thrombectomy
NPO after midnight.
Will monitor closely
Follow up with outpatient echo in one month.
Elevated troponin levels
Due to acute non ischemic myocardial injury
EKG normal
troponin trending down
Essential hypertension
Continue to hold lisinopril
And continue with amlodipine, if systolic <90 then hold amlidipine.
Monitor blood pressure closely
Data Reviewed
-
EKG: Tracing Personally Visualized and interpreted, Report Reviewed by me and Discussed with Physician
CT Scan: Image Personally Visualized and interpreted, Report Reviewed by me and Discussed with Physician
Medical Tests (Nuc Med, Echo etc): Report Reviewed by me and Discussed with Physician
Labs: Labs Reviewed by me and Discussed with Physician
[2024-02-29 14:49] LABS: APTT 117.1 Sec (23.4-35.0)
--- NOTE | 2024-02-29 16:41 | PTCARENOTE ---
Pt assessed.No change in assessment noted.
--- NOTE | 2024-02-29 16:43 | CM ---
Patient seen at bedside with patient daughter present. Patient stated that she lives with daughter in 2 story home. Patient PCP is Dr. Chavez from [facility] and Patient uses the [facility] on [address] in [place]. Patient daughter wants to
take patient home but pending assessments from therapy and medical assessments. CM will continue to follow for discharge planning needs.
Plan; home with VN vs SNF pending medical treatment plan
[2024-02-29] MEDS: HEPARIN 25000 UNITS/250 ML IV (19:32)
--- NOTE | 2024-02-29 20:00 | PTCARENOTE ---
Pt received awake alert and oriented. NSR on monitor. Sat 97% on O2 2L. Assessment as charted. Pt denies pain and shortness of breath at this time.
[2024-02-29 21:35] LABS: APTT 104.5 Sec (23.4-35.0)
[2024-03-01] VITALS (27 sets, daily range): BP systolic 82–143; BP diastolic 49–112; PULSE 95; O2SAT 98; BMI 28.5
[2024-03-01] MEDS: NSS 1000 IV (00:46)
[2024-03-01 04:03] LABS: Hematocrit 35.3 % (37.0-47.0); Hemoglobin 12.3 g/dL (12.0-16.0); Mean Corp Hgb Conc. 34.8 g/dL (33.0-37.0); Mean Corpuscular Hgb 30.3 pg (27.0-31.0); Mean Corpuscular Volume 86.9 fL (81.0-99.0); Mean Platelet Volume 10.2 fL (7.4-10.4); Platelet Count 185 10^3/uL (130-400); Red Blood Cell Count 4.06 10^6/uL (4.20-5.40); Red Cell Dist. Width 14.1 % (11.5-14.5); White Blood Cell Count 6.6 10^3/uL (4.8-10.8)
[2024-03-01 04:16] LABS: APTT 78.1 Sec (23.4-35.0)
[2024-03-01 04:21] LABS: Blood Urea Nitrogen 9 mg/dl (7-17); Carbon Dioxide 19 mmol/L (22-30); Chloride 111 mmol/L (98-107); Estimated Creatinine Clearance 56 ml/min; Glucose 84 mg/dl (70-99); Sodium 140 mmol/L (135-145); eGFR > 60.00
--- NOTE | 2024-03-01 05:02 | PTCARENOTE ---
Pt slept well through night. Assessment unchanged.
--- NOTE | 2024-03-01 06:21 | W.PN.HOSP.TC ---
Today's Communication/Plan
-
Patient wants Dr Zee to confirm the plan of care
c/w heparin then change to oral AC
hemodynamically stable since admission, Out of bed protocol
Resume lisinopril but lower dose
Transfer out of ICU if able
Assessment / Plan
Assessment / Plan
Physical Exam
General: Well Developed, Well Nourished and No Apparent Distress
HEENT: Normocephalic, Moist mucous membranes and Atraumatic
Respiratory: no wheezes, Clear
Cardiac: S1/S2 , tachycardia
GI: Soft, Non Tender, Non Distended
Rectal: Deferred by Provider
Musculoskeletal: No Clubbing, No Cyanosis and No Edema
Skin: No Rash
Neuro: AO x 3 and Nonfocal/grossly intact
Psych: Calm
#Acute respiratory distress due to saddle pulmonary Embolism without signs of cor-pulmonale
No sob or chest pain
She denied chest pain
Seems on low O2 and can be weaned off
c/w IV heparin drip for 48 hours then change to oral AC
-ECHO c/w Right ventricle is dilated and hypokinetic. LVEF 55%. Mild LVH.
Positive troponin c/w RV stain
Appreciate pulmonary
#Essential hypertension
- Continue Norvasc with hold parameter
-held lisinopril, resume
#elevated trop likely c/w demand ischemia/ Type II IN
No chest pain
EKG normal SR , no changes to ST segments
#Breast cancer status post lumpectomy
#hxt of lymphoma
-follow[facility].
#Code status: DNR
Total time spent to see the patient, examine the patient on the floor, review data and lab results, discuss treatment plan with patient, nursing staff around 55 minutes
Anticipated Discharge: > 48 hours
Subjective/Interval History
-
Date of Service: March 01, 2024
No worsening hypoxia over night
Still on Heparin gtt
No chest pain
Objective Data
-
Labs:
Laboratory Results
02/29/24 02/29/24 03/01/24
21:17 23:13 03:38
WBC 6.6
Hgb 12.3
Hct 35.3 L
Plt Count 185
APTT 104.5 H Cancelled 78.1 H
Sodium 140
Potassium 4.0
Chloride 111 H
Carbon Dioxide 19 L
BUN 9
Creatinine 0.7
Glucose 84
Calcium 8.0 L
Vital Signs:
Vital Signs
Temp Pulse Resp BP Pulse Ox
98.1 F 79 14 135/69 98
03/01/24 03:46 03/01/24 05:00 03/01/24 05:00 03/01/24 05:00 03/01/24 05:00
I&O
02/28/24 02/29/24 03/01/24
06:59 06:59 06:59
Intake Total 1264 / 1374 2786 / 2786
Output Total 259 / 259 2205 / 2205
Balance 1005 / 1115 581 / 581
[2024-03-01] MEDS: NORVASC 10 MG PO (07:47)
[2024-03-01] MEDS: NON-FORMULARY ITEM 1 UNIT PO (07:48)
--- NOTE | 2024-03-01 08:00 | PTCARENOTE ---
Received pt awake and alert.Speech is appropriate.Repositioning self in bed.Denies pain.SR noted.Heparin gtt and IVF infusing.O2 2l NC.POX 97%Lungs CTA.Pt denies SOB.Appetite fair.No BM.Lawson draining yellow urine.Plan of care discussed with pt.
--- NOTE | 2024-03-01 09:24 | PN.CDI ---
Addendum entered and electronically signed by Qasim Varghese MD 03/01/24 09:56:
Non ischemic myocardial injury
Original Note:
CDI
- -
CDI:
Physician Documentation Request
Admit Date: 02/28/24 19:32
Dear Doctor Halima,
Patient admitted with pulmonary embolism.
02/28 Cardiology Consult: 'Elevated troponin levels, Due to acute non ischemic myocardial injury'
03/01 Hospitalist PN: 'elevated trop likely c/w demand ischemia/ Type II VA'
Laboratory Tests
02/28/24 02/28/24
17:15 22:06
Troponin I 0.075 H* 0.062 H*
Please clarify the following regarding the troponin elevation:
Non ischemic myocardial injury
Type 2 VA due to demand ischemia
Other
Use of terms such as suspected, likely, concern for, or probable (associated with a specific diagnosis that is being evaluated, monitored, or treated as if it exists) are acceptable and can be coded in the inpatient setting, when documented at the
time of discharge.
Thank you,
Ida Hermosillo RN, BSN
CDI Specialist
Available via [place] text
Please use your independent medical judgment in providing your response.
[2024-03-01] MEDS: ZESTRIL PO (10:07)
--- NOTE | 2024-03-01 10:25 | W.PN.INTV ---
Addendum entered and electronically signed by Norman Zee MD 03/01/24 11:58:
Patient seen and examined independently by me. Resident note reviewed and agree with assessment and plan
Patient without any complaints overnight. Denies chest pain, chest tightness, lightheadedness, dizziness, palpitations, shortness of breath.
Vitals are stable, no evidence of tachycardia, normotensive. 98% on room air
Chest exam is clear, no edema, no calf tenderness
Data reviewed Doppler studies noted
Left lower extremity popliteal vein and peroneal vein DVT
PTT/heparin therapeutic
A/P
At this time, patient is objectively and subjectively improved.
I observed her ambulating in the room with nursing. She was without symptoms, no evidence of tachycardia, hypotension, hypoxia
Doppler study results reviewed with patient
Moving forward
Will encourage ambulation with assistance
PT for ambulation
Continue heparin therapy for now
Depending on how she does, will transition to oral anticoagulation in the a.m.
Would keep in ICU for another 24 hours
Patient is aware of risks given thromboembolic disease
On multiple occasions she has confirmed her DNR status
Oncology correspondence reviewed
Input appreciated
Eventual evaluation for antiphospholipid antibody
Outpatient imaging plans noted
Reviewed with critical care nursing, respiratory care, pharmacy
Reviewed with primary service, oncology
Original Note:
Today's Communication / Plan
Recommendations
Cont heparin gtt- Hold lisinopril- OOB- attempt to d/c Lawson and wean off O2 as tolerated
Assessment
-
78-year-old female with pmh of lymphoma and breast cancer, sudden-onset shortness of breath starting Tuesday. She was admitted due to saddle pulmonary emboli detected on outpatient CT.
Chest CT(02/28):There is a saddle embolus straddling the posterior bifurcation of the right and left main pulmonary arteries. On the right, there is embolus which extends into the right upper lobe, right middle lobe, and right lower lobe pulmonary
artery branches. on the left, there is embolus which extends into the left upper lobe lingular, and lower lobe pulmonary artery branches.The right ventricle is enlarged compared to the left ventricle, and suggests right heart strain.
# Saddle PE most likely in the setting of malignancy
-Hemodynamics remain stable, not tachycardic, not hypotensive
-Receiving heparin at 800/hr
-Discontinued normal saline from this a.m.
-After having discussions in length with Dr. Zee, patient has made a decision to decline thrombectomy for now
-No plans for OR-Diet advanced to regular
-Activity advanced to OOB
-Two recent PTTs have been in therapeutic range.
-Will transition to OAC tomorrow
-b/l LE Doppler US today- No signs of DVT- waiting for final report
-Chest x-ray (02/28) unremarkable for other acute cardiopulmonary disease
-Will try to wean off O2 as tolerated
-Will try to d/c Lawson by EOD today
# History of essential hypertension
-Amlodipine on parameters
-Hold lisinopril for now
# Hypercalcemia
-Most likely in the setting of dehydration-resolved (currently 8)
-Will check albumin
# Mild leukocytosis
-Resolved
# Elevated trop and proBNP (present on admission)
-probably demand ischemia
-No chest pain, EKG normal
-Appreciate cardiology-repeat TTE in 4 weeks
# hx of Lymphoma and breast cancer
Appreciate Oncology-Dr. Alvarenga visited pt this morning
Subjective Dataa
Subjective Data
Date of Service:
Date of Service: March 01, 2024
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
Subjective:
Patient did not require increase in supplemental O2 overnight. Remains on 2 L O2 and saturating well without progressive shortness of breath. Denies chest pain or abdominal pain. Output has been good.
Review of Systems
General: Satisfactory Appetite
Genitourinary: Lawson
Objective Data
Data Reviewed
Vital Signs / I&O / Oxygen:
Vital Signs
Temp Pulse Resp BP Pulse Ox
98.5 F 79 20 143/68 98
03/01/24 07:00 03/01/24 06:00 03/01/24 06:00 03/01/24 07:47 03/01/24 06:00
Intake and Output
02/29/24 03/01/24 03/02/24
06:59 06:59 06:59
Intake Total 1264 / 1374 2944 / 2944
Output Total 259 / 259 2205 / 2205
Balance 1005 / 1115 739 / 739
SaO2 98
Nasal Cannula flow liters per 2
minute
Physical Exam
General: Comfortable and Good Appetite
HEENT: Normocephalic, Anicteric and Moist Mucous Membranes
Cardiovascular: S1-S2, Regular Rhythm, JVD (negative), Peripheral Edema (negative) and Calf Tenderness (negative)
Respiratory: Clear and Other (Saturating 96% on 2 L O2)
GI: Soft, Non Distended, Non Tender, Normal Bowel Sounds and Other (Last BM was on Tuesday)
Neurology: Awake, Alert, Oriented, AO x 3 and No Motor Deficits
Skin: Warm and Dry
Labs/Micro/Reports
Lab Data
03/01/24 03:38
03/01/24 03:38
Laboratory Results
02/29/24 02/29/24 02/29/24
14:25 21:17 23:13
APTT 117.1 H 104.5 H Cancelled
03/01/24
03:38
APTT 78.1 H
--- NOTE | 2024-03-01 11:22 | CON.ONC ---
Impression
Impression
Saddle pulmonary embolus
Right heart strain
Follicular lymphoma minimal disease burden
Previous pleural effusion positive for lymphoma
History of breast carcinoma
Hypercalcemia may be related to lymphoma
Plan
Plan
Continue to monitor CBC
Will need outpatient PET CT scan restaging as a means of restaging lymphoma
Continue aggressive anticoagulation
Reasonable to convert to DOAC
Evaluate for APL
Anticipate transfer out of ICU
Patient History
History of Present Illness
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
per CT scans performed in July. She began having symptoms of abrupt onset shortness of breath symptoms started Tuesday prior to admission. She contacted her primary physician in order CT chest angiogram which confirmed bilateral PE, saddle
embolus. Upon arrival to [facility], found to be normotensive, requiring 2 L. Echocardiogram at the bedside showed dilated RV, PA pressure 55, underfilled LV. Slight elevation of troponin was noted. She is clinically stable with
resolving shortness of breath.
Past-Medical/Surgical History
Past Medical History
Past Medical History: Follicular non-Hodgkin's lymphoma and HTN
Social History
Tobacco: Non-smoker
Alcohol: None
Drug: None
Personal:
Living: With Family
Family History
Noncontributory other than HPI
Patient Medication
�Medication �Instructions �Recorded �Confirmed �Last Taken �Type
lisinopril 40 mg tablet 40 mg PO DAILY Blood pressure 05/21/17 02/28/24 02/28/24 History
calcium 600 mg-D3 20 mcg-magnesium 1 ea PO BID Supplement 06/26/17 02/28/24 02/28/24 History
50 cb-Ob-mtnori-jessica-boron
tablet (Calcium 600-D3 Plus
(mag-zinc))
omega 6-eaf-ewk-fish oil 300 1 ea PO BID Supplement 06/26/17 02/28/24 02/28/24 History
mg-1,000 mg capsule (Fish Oil)
vitamins A,C,G-sdid-hicvwm 2,148 1 tab PO BID Supplement ##0 06/26/17 02/28/24 02/28/24 History
mcg-113 mg-45 mg-17.4 mg tablet
(PreserVision AREDS)
amlodipine 10 mg tablet 10 mg PO DAILY Blood pressure 04/05/20 02/28/24 02/28/24 History
coenzyme Q10 100 mg capsule (Co 100 mg PO DAILY Supplement 02/28/24 02/28/24 02/28/24 History
Q-10)
denosumab 60 mg/mL subcutaneous 60 mg SC [id number] OSTEOPOROSIS 02/28/24 02/28/24 6 Months Ago History
syringe (Prolia) ~08/29/23
red yeast rice 600 mg tablet 600 mg PO DAILY Supplement 02/28/24 02/28/24 02/28/24 History
therapeutic multivitamin 1 tab PO DAILY Supplement 02/28/24 02/28/24 02/28/24 History
Active Medications
Generic Name Dose Route Start Last Admin
Trade Name Freq PRN Reason Stop Dose Admin
Acetaminophen 650 mg 02/28/24 21:14 02/28/24 21:38
Acetaminophen 325 Mg Tablet PO 03/27/24 21:13 650 mg
Q4HPRN PRN Administration
mild pain
Amlodipine Besylate 10 mg 02/29/24 08:00 03/01/24 07:47
Amlodipine 10 Mg Tablet PO 03/28/24 07:59 10 mg
DAILY LIZBETH Administration
Heparin Sodium 5,600 units 02/28/24 17:48
Heparin 80 Units/Kg Rebolus-Do Not Discard IV 03/27/24 17:47
PRN PRN
PTT < OR = 64 seconds
Heparin Sodium 2,800 units 02/28/24 17:48
Heparin 40 Units/Kg Rebolus-Do Not Discard IV 03/27/24 17:47
PRN PRN
PTT = 64.1 to 72.9 seconds
Heparin Sodium 25,000 units in 250 mls @ 0 mls/hr 02/28/24 17:30 02/29/24 19:32
Heparin 58817 Units/250 Ml IV 250 mls
PER PROTOCOL LIZBETH Administration
Protocol
Per Protocol
Lisinopril 10 mg 03/01/24 08:00 03/01/24 10:07
Lisinopril 10 Mg Tablet PO 03/29/24 07:59 Not Given
BID LIZBETH
Xylimelts 1 Po 0 unit 02/29/24 08:37 03/01/24 07:48
Q1hprn PO 03/28/24 08:36 1 unit
Q1HPRN PRN Administration
DRY MOUTH
Sodium Chloride 0 flush 02/28/24 21:00
Sodium Chloride 0.9% (Flush) Syringe IV 03/27/24 20:59
PER PROTOCOL LIZBETH
Physical Exam
-
Physical Exam
General: Comfortable and Good Appetite
HEENT: Normocephalic, Anicteric and Moist Mucous Membranes
Cardiovascular: S1-S2, Regular Rhythm, JVD (negative), Peripheral Edema (negative) and Calf Tenderness (negative)
Respiratory: Clear and Other (Saturating 96% on 2 L O2)
GI: Soft, Non Distended, Non Tender, Normal Bowel Sounds and Other (Last BM was on Tuesday)
Neurology: Awake, Alert, Oriented, AO x 3 and No Motor Deficits
Skin: Warm and Dry
Labs
Lab Results
WBC 6.6 10^3/uL (4.8-10.8) 03/01/24 03:38
RBC 4.06 10^6/uL (4.20-5.40) L 03/01/24 03:38
Hgb 12.3 g/dL (12.0-16.0) 03/01/24 03:38
Hct 35.3 % (37.0-47.0) L 03/01/24 03:38
MCV 86.9 fL (81.0-99.0) 03/01/24 03:38
MCH 30.3 pg (27.0-31.0) 03/01/24 03:38
MCHC 34.8 g/dL (33.0-37.0) 03/01/24 03:38
RDW 14.1 % (11.5-14.5) 03/01/24 03:38
Plt Count 185 10^3/uL (130-400) 03/01/24 03:38
MPV 10.2 fL (7.4-10.4) 03/01/24 03:38
Abs Immat Gran (auto) 0.0 10^3/uL (0-0.05) 02/28/24 17:15
Absolute Neuts (auto) 8.5 10^3/uL (1.4-6.5) H 02/28/24 17:15
Absolute Lymphs (auto) 1.5 10^3/uL (1.2-3.4) 02/28/24 17:15
Absolute Monos (auto) 0.5 10^3/uL (0.1-0.6) 02/28/24 17:15
Absolute Eos (auto) 0.0 10^3/uL (0-0.7) 02/28/24 17:15
Absolute Basos (auto) 0.0 10^3/uL (0-0.2) 02/28/24 17:15
Immature Gran % 0.3 % (0-0.5) 02/28/24 17:15
Neutrophils % 80.6 % (42.2-75.2) H 02/28/24 17:15
Lymphocytes % 14.4 % (20.5-51.1) L 02/28/24 17:15
Monocytes % 4.3 % (1.7-9.3) 02/28/24 17:15
Eosinophils % 0.2 % (0-6) 02/28/24 17:15
Basophils % 0.2 % (0-2) 02/28/24 17:15
Creatinine 0.7 mg/dL (0.6-1.0) 03/01/24 03:38
Vital Signs
Vital Signs
Temp Pulse Resp BP Pulse Ox
97.7 F 79 20 143/68 98
03/01/24 11:00 03/01/24 06:00 03/01/24 06:00 03/01/24 07:47 03/01/24 06:00
--- NOTE | 2024-03-01 12:05 | PTCARENOTE ---
Pt assessed.No change in assessment noted.POX 96% on RA.Assisted OOB to chair with minimal assist at 1000.
[2024-03-01 14:30] LABS: D-Dimer 5.47 ug/mlFEU (0.00-0.50)
--- NOTE | 2024-03-01 16:49 | PTCARENOTE ---
Pt assessed.No change in assessment noted.
--- NOTE | 2024-03-01 20:30 | PTCARENOTE ---
Pt received awake alert and oriented. Remains on room air with sats 92-94%. Remains in NSR. Assessment as charted.
[2024-03-02] VITALS (25 sets, daily range): BP systolic 91–143; BP diastolic 59–100; PULSE 88; O2SAT 98
[2024-03-02] MEDS: NSS 250 IV (00:37)
[2024-03-02] MEDS: NON-FORMULARY ITEM 1 UNIT PO (01:23)
[2024-03-02] MEDS: HEPARIN 25000 UNITS/250 ML IV (01:24)
--- NOTE | 2024-03-02 02:34 | PTCARENOTE ---
Pt with urine output 15-25 ml per hour. Discussed with rubber block layer VIPUL. 250ml NSS bolus given. Will continue to monitor.
[2024-03-02 04:29] LABS: Hematocrit 36.2 % (37.0-47.0); Mean Corp Hgb Conc. 35.9 g/dL (33.0-37.0); Mean Corpuscular Hgb 29.7 pg (27.0-31.0); Mean Corpuscular Volume 82.8 fL (81.0-99.0); Mean Platelet Volume 9.9 fL (7.4-10.4); Platelet Count 226 10^3/uL (130-400); Red Blood Cell Count 4.37 10^6/uL (4.20-5.40); Red Cell Dist. Width 13.9 % (11.5-14.5)
[2024-03-02 04:38] LABS: APTT 65.7 Sec (23.4-35.0)
[2024-03-02 04:52] LABS: Blood Urea Nitrogen 15 mg/dl (7-17); Calcium 8.6 mg/dl (8.4-10.2); Carbon Dioxide 20 mmol/L (22-30); Chloride 110 mmol/L (98-107); Estimated Creatinine Clearance 49 ml/min; Glucose 93 mg/dl (70-99); Potassium 3.5 mmol/L (3.5-5.1); Sodium 142 mmol/L (135-145); eGFR > 60.00
[2024-03-02] MEDS: HEPARIN 2800 UNITS IV (05:06)
--- NOTE | 2024-03-02 05:12 | PTCARENOTE ---
Urine output improved after NSS bolus. PTT this am 65.7. Heparin bolus given and drip increased to 900 units/hr. Assessement unchanged.
[2024-03-02] MEDS: KCL 270 MEQ IV (06:47)
[2024-03-02] MEDS: NORVASC 10 MG PO (08:50)
--- NOTE | 2024-03-02 08:59 | PTCARENOTE ---
Received pt in bed. She is awake and alert. Reviewed the plan of care regarding her anticoagulant plan of care. Good DP pulses bilateraly. Heparng now infusing via right fa IV @ 900units/hr. Potassium replacement infusing # 40ml/hr due to burning.
RA saturation 98%. She was assisted to the chair and stated she feels better than yesterday. Lawson catheter removed prior to getting in the chair. Safe environment maintained.
--- NOTE | 2024-03-02 09:48 | W.PN.HOSP.TC ---
Today's Communication/Plan
-
AC with Lovenox
OOB and ambulate with assistance
PT/OT
May downgrade tomorrow
Assessment / Plan
Assessment / Plan
Impression: 78-year-old female with PMH of hypertension, small B-cell lymphoma, hyperlipidemia who presented to ED on 02/28/2024 with worsening SOB and CALVILLO. CT scan positive for saddle pulmonary embolus, started on heparin drip and admitted to
ICU for further evaluation and management.
Assessment/plan:
#Acute respiratory distress due to submassive saddle pulmonary Embolism without signs of cor-pulmonale.
-Multifactorial; stasis from sedentary lifestyle, follicular lymphoma, history of breast cancer.
-Improved, recommend ambulation with PT assistance only.
-Now on room air, saturating appropriately.
-PT/OT.
-Transition AC to Lovenox.
-Encourage improved ambulation upon discharge.
-No history of miscarriage, or blood clots; evaluate for antiphospholipid syndrome per oncology.
-Eventually outpatient PET/CT to assess for cancer recurrence.
-Oncology appreciated.
-Pulmonary team appreciated.
#Elevated troponin.
-Peaked at 0.075.
-No chest pain, EKG with normal SR and no ST changes.
-Consistent with demand ischemia with RV strain.
-Echo report reviewed, LVEF 55%.
#Essential hypertension
-Continue Norvasc with hold parameter
-Continue lisinopril
#Breast cancer status post lumpectomy
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
-S/p R-CHOP completed 08/2020.
-[facility]
#DVT prophylaxis: Heparin
#Code status: DNR
Anticipated Discharge: 24 - 48 hours
Subjective/Interval History
-
Date of Service: March 02, 2024
Patient seen and examined. Resting on the chair, in no cardiopulmonary distress. Reports SOB on exertion but not at baseline, denies chest pain, dizziness, palpitations, lightheadedness, chest tightness, tachycardia.
Vitals are stable BP 143/70, pulse 78, respiratory 14, afebrile, saturating at 96% on room air. Weight is up 4 pounds, I's and O's -1999. Denies history of miscarriage, or blood clots.
Objective Data
-
Labs:
Laboratory Results
03/02/24 03/02/24
04:17 11:00
WBC 8.0
Hgb 13.0
Hct 36.2 L
Plt Count 226 D
APTT 65.7 H Pending
Sodium 142
Potassium 3.5
Chloride 110 H
Carbon Dioxide 20 L
BUN 15
Creatinine 0.8
Glucose 93
Calcium 8.6
Vital Signs:
Vital Signs
Temp Pulse Resp BP Pulse Ox
97.8 F 78 14 143/70 96
03/02/24 08:38 03/02/24 08:50 03/02/24 08:00 03/02/24 08:50 03/02/24 08:38
I&O
03/01/24 03/02/24 03/03/24
06:59 06:59 06:59
Intake Total 2944 / 3052 1490 / 1490 49 / 49
Output Total 2205 / 2205 2905 / 2905 475 / 475
Balance 739 / 847 -1415 / -1415 -426 / -426
Review of Systems
-
History Source: Patient
All other systems: Not reviewed unless documented
Constitutional: Reports No Symptoms; Denies Fever or Chills
Respiratory: Reports Other (Dyspnea on exertion); Denies Cough, Trouble Breathing or Wheezing
Cardiac: Reports No Symptoms and Other (JVD negative); Denies Chest Pain, Palpitations or Syncope
Abdomen/GI: Reports No Symptoms; Denies Abdominal Pain, Nausea, Vomiting or Diarrhea
Neuro: Denies Dizzy, Headache or Weakness
Physical Exam
-
General: Well Developed and No Apparent Distress
Respiratory: Clear to Auscultation; Negative Wheezes
--- NOTE | 2024-03-02 10:48 | W.PN.INTV ---
Addendum entered and electronically signed by Norman Zee MD 03/02/24 11:58:
Patient seen and examined independently by myself. Resident note reviewed, agree with assessment and plan
Patient continues to feel well. She describes an episode yesterday while sitting in the chair, bending over to pick something up became lightheaded
Also describes shortness of breath with physical therapy but denies palpitations, chest pain or lightheadedness with ambulation
Heparin therapy continues, bolus provided due to subtherapeutic PTT earlier this morning
Vitals stable, 97% on 2 L, heart rate 80s
Chest exam is clear
Abdomen is benign
No lower extreme edema or calf tenderness
Data reviewed
Oncology correspondence reviewed
A/P
Moving forward, we will continue with anticoagulation
Transition to Lovenox 1 mg/kg every 12 hours
Continue with ambulation with assistance, PT with assistance
Continue with amlodipine for now, hold lisinopril
Patient did receive bolus of fluid overnight to help with urine output
Improved at this time
Blood work for antiphospholipid antibody pending
Appreciate hematology input
Eventual outpatient imaging per hematology
Lawson catheter out
Would keep in ICU for now
Anticipate possible downgrade over the next 24 to 48 hours
May consider repeat echocardiogram prior to discharge depending on clinical course
Reviewed with patient
Reviewed with critical care nursing, respiratory care, pharmacy
Reviewed with primary service
Original Note:
Today's Communication / Plan
Recommendations
Stop heparin gtt and transition to Lovenox-- OOB- Repeat Echo on Tuesday
Assessment
-
78-year-old female with pmh of lymphoma and breast cancer, sudden-onset shortness of breath starting Tuesday. She was admitted due to saddle pulmonary emboli detected on outpatient CT.
Chest CT(02/28):There is a saddle embolus straddling the posterior bifurcation of the right and left main pulmonary arteries. On the right, there is embolus which extends into the right upper lobe, right middle lobe, and right lower lobe pulmonary
artery branches. on the left, there is embolus which extends into the left upper lobe lingular, and lower lobe pulmonary artery branches.The right ventricle is enlarged compared to the left ventricle, and suggests right heart strain.
# Saddle PE most likely in the setting of malignancy
-Hemodynamics remain stable, not tachycardic, BP briefly dropped to around 90 yesterday evening but has been >120 since midnight.
-PTT at 4 am was subtherapeutic-Received heparin 40 units bolus + increased heparin gtt at 900/hr-Will transition to Lovenox today
-Fluids d/c ed
-Lawson d/c ed
-No plans for OR
-OOB- became winded during PT but has not required supplemental O2 since weaning of yesterday
-b/l LE Doppler US- DVT in L peroneal and L popliteal vein
-Chest x-ray (02/28) unremarkable for other acute cardiopulmonary disease
# History of essential hypertension
-BPs in the 140s forging dies final finisher. Received amlodipine
-Keep holding lisinopril for now
# Hypercalcemia
-Most likely in the setting of dehydration or lymphoma-resolved (currently 8.6)
# Mild leukocytosis
-Resolved
# Elevated trop and proBNP (present on admission)
-probably demand ischemia
-No chest pain, EKG normal
-Appreciate cardiology-repeat TTE on Tuesday
# hx of Lymphoma and breast cancer
Appreciate Oncology-Dr. Alvarenga visited pt
APLS serology pending
Eventual PET/CT for lymphoma staging as OP
Subjective Dataa
Subjective Data
Date of Service:
Date of Service: March 02, 2024
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
Subjective:
Denies chest pain, shortness of breath, cough, abdominal pain. Denies feeling lightheaded at the current time. Urine output was low earlier in the morning. Received 250 cc normal saline bolus. Output has been good since.
She became a bit winded after OT PT yesterday but did not require supplemental oxygen. Has been saturating sufficiently on room air.
Review of Systems
Cardiopulmonary: Dyspnea on Exertion (winded during OT PT)
Neuro: Other (Very brief episode of lightheadedness yesterday evening- currently resolved)
Objective Data
Data Reviewed
Vital Signs / I&O / Oxygen:
Vital Signs
Temp Pulse Resp BP Pulse Ox
97.8 F 78 14 143/70 96
03/02/24 08:38 03/02/24 08:50 03/02/24 08:00 03/02/24 08:50 03/02/24 08:38
Intake and Output
03/01/24 03/02/24 03/03/24
06:59 06:59 06:59
Intake Total 2944 / 3052 1490 / 1490 49 / 49
Output Total 2205 / 2205 2905 / 2905 475 / 475
Balance 739 / 847 -1415 / -1415 -426 / -426
SaO2 96
Nasal Cannula flow liters per 2
minute
Physical Exam
General: Comfortable and Good Appetite
HEENT: Normocephalic, Anicteric and Moist Mucous Membranes
Cardiovascular: S1-S2, Regular Rhythm, JVD (negative), Peripheral Edema (negative) and Calf Tenderness (negative)
Respiratory: Clear and Other (Saturating 96% on RA)
GI: Soft, Non Distended, Non Tender and Normal Bowel Sounds
Neurology: Awake, Alert, Oriented, AO x 3 and No Motor Deficits
Skin: Warm and Dry
Labs/Micro/Reports
Lab Data
03/02/24 04:17
03/02/24 04:17
Laboratory Results
03/02/24
04:17
APTT 65.7 H
[2024-03-02] MEDS: LOVENOX 70 MG SC ×2 (12:47→22:26)
--- NOTE | 2024-03-02 14:50 | PTCARENOTE ---
Pt with her eyes closed. She stated this morning she did not get sleep overnight. RR easy and unlabored. BP 129/63, HR 74.
[2024-03-02] MEDS: SENOKOT-S 1 TABLET PO (18:14)
--- NOTE | 2024-03-02 18:26 | PTCARENOTE ---
OOB to the chair. Using walker without difficulty. Assisted to the BR with minimal assistance. Safe environment maintained.
[2024-03-02] MEDS: SENOKOT 8.6 MG PO (19:47)
--- NOTE | 2024-03-02 20:30 | PTCARENOTE ---
pt received from previous rn- aox3, on room air, denies sob at rest. nsr on monitor. educated about plan of care- verbalized understanding. all safety precautions in place, call minaya within reach. no complaints at this time.
[2024-03-03] VITALS (22 sets, daily range): BP systolic 96–156; BP diastolic 44–122; PULSE 88; O2SAT 91; BMI 27.5
--- NOTE | 2024-03-03 00:26 | PTCARENOTE ---
assessment unchanged. pt oob to bathroom and independent with pm care
--- NOTE | 2024-03-03 05:58 | PTCARENOTE ---
assessment unchanged. oob to bathroom. labs sent as per order.
[2024-03-03 06:02] LABS: Hematocrit 37.4 % (37.0-47.0); Hemoglobin 13.4 g/dL (12.0-16.0); Mean Corp Hgb Conc. 35.8 g/dL (33.0-37.0); Mean Corpuscular Hgb 30.7 pg (27.0-31.0); Mean Corpuscular Volume 85.6 fL (81.0-99.0); Mean Platelet Volume 9.9 fL (7.4-10.4); Platelet Count 237 10^3/uL (130-400); Red Blood Cell Count 4.37 10^6/uL (4.20-5.40); Red Cell Dist. Width 13.9 % (11.5-14.5)
[2024-03-03 06:10] LABS: APTT 47.3 Sec (23.4-35.0)
[2024-03-03 06:28] LABS: Blood Urea Nitrogen 13 mg/dl (7-17); Calcium 8.9 mg/dl (8.4-10.2); Carbon Dioxide 17 mmol/L (22-30); Chloride 111 mmol/L (98-107); Estimated Creatinine Clearance 55 ml/min; Glucose 96 mg/dl (70-99); Potassium 3.9 mmol/L (3.5-5.1); Sodium 141 mmol/L (135-145); eGFR > 60.00
--- NOTE | 2024-03-03 07:13 | W.PN.INTV ---
Today's Communication / Plan
Recommendations
Continue with current care, no changes
Activity with assistance
Continue Lovenox
Consider transition to oral agent 03/05
Repeat echocardiogram 03/05
Okay for transfer to IMU. Pulmonary will continue to follow
Assessment
-
78-year-old female with pmh of lymphoma and breast cancer, sudden-onset shortness of breath starting Tuesday. She was admitted due to saddle pulmonary emboli detected on outpatient CT.
Chest CT(02/28):There is a saddle embolus straddling the posterior bifurcation of the right and left main pulmonary arteries. On the right, there is embolus which extends into the right upper lobe, right middle lobe, and right lower lobe pulmonary
artery branches. on the left, there is embolus which extends into the left upper lobe lingular, and lower lobe pulmonary artery branches.The right ventricle is enlarged compared to the left ventricle, and suggests right heart strain.
# Saddle PE most likely in the setting of malignancy
Hemodynamically stable
Transition to Lovenox every 12 as of 03/02
Continue with Lovenox for now
Consider transition to oral agent on Tuesday
Would like to repeat echocardiogram on Tuesday
# History of essential hypertension
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 Received amlodipine
-Keep holding lisinopril for now
# Hypercalcemia
-Most likely in the setting of dehydration or lymphoma-resolved (currently 8.6)
# Mild leukocytosis
-Resolved
# Elevated trop and proBNP (present on admission)
-probably demand ischemia
-No chest pain, EKG normal
-Appreciate cardiology-repeat TTE on Tuesday
# hx of Lymphoma and breast cancer
Appreciate Oncology-Dr. Alvarenga visited pt
APLS serology pending
Eventual PET/CT for lymphoma staging as OP
Okay for transfer out of ICU to IMU. Orders placed
Reviewed with primary service, resident
Pulmonary will continue to follow
Reviewed with patient importance of activity with assistance. This was also reviewed with critical care nursing
Subjective Dataa
Subjective Data
Date of Service:
Date of Service: March 03, 2024
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
Subjective:
Patient is feeling better today. Ambulating in the room to, bathroom without issues. Denies chest pain, chest tightness, lightheadedness, palpitations.
Objective Data
Data Reviewed
Vital Signs / I&O / Oxygen:
Vital Signs
Temp Pulse Resp BP Pulse Ox
98.5 F 72 16 134/69 94
03/03/24 03:16 03/03/24 06:00 03/03/24 06:00 03/03/24 06:00 03/03/24 06:00
Intake and Output
03/02/24 03/03/24 03/04/24
06:59 06:59 05:59
Intake Total 1490 / 1490 448 / 448
Output Total 2905 / 2905 1725 / 1725
Balance -1415 / -1415 -1277 / -1277
SaO2 94
Nasal Cannula flow liters per 2
minute
Physical Exam
General: Comfortable and Good Appetite
HEENT: Normocephalic, Anicteric and Moist Mucous Membranes
Cardiovascular: S1-S2, Regular Rhythm, JVD (negative), Peripheral Edema (negative) and Calf Tenderness (negative)
Respiratory: Clear and Other (Saturating 96% on RA)
GI: Soft, Non Distended, Non Tender and Normal Bowel Sounds
Neurology: Awake, Alert, Oriented, AO x 3 and No Motor Deficits
Skin: Warm and Dry
Labs/Micro/Reports
Lab Data
03/03/24 05:51
03/03/24 05:51
Laboratory Results
03/03/24
05:51
APTT 47.3 H
--- NOTE | 2024-03-03 07:56 | PTCARENOTE ---
0700 patient seen in bed, no in distress. BP via Rt upper arm 1310/71 SR 86; RR 20 96%RA. Denies cough, SOB, or chest pain. AAO x3. call minaya within reach
[2024-03-03] MEDS: LOVENOX 70 MG SC ×2 (08:26→21:11)
[2024-03-03] MEDS: NORVASC 10 MG PO (08:27)
[2024-03-03] MEDS: SENOKOT-S 2 TABLET PO (08:27)
--- NOTE | 2024-03-03 14:27 | W.PN.HOSP.TC ---
Today's Communication/Plan
-
Tx to IMU
CW lovenox
DC planning
Assessment / Plan
Assessment / Plan
Impression: 78-year-old female with PMH of hypertension, small B-cell lymphoma, hyperlipidemia who presented to ED on 02/28/2024 with worsening SOB and CALVILLO. CT scan positive for saddle pulmonary embolus, started on heparin drip and admitted to
ICU for further evaluation and management.
Assessment/plan:
#Acute respiratory distress due to submassive saddle pulmonary Embolism without signs of cor-pulmonale.
-Multifactorial; stasis from sedentary lifestyle, follicular lymphoma, history of breast cancer.
-Improved, recommend ambulation with PT assistance only.
-Now on room air, saturating appropriately.
-PT/OT.
-Transition AC to Lovenox.
-Encourage improved ambulation upon discharge.
-No history of miscarriage, or blood clots; evaluate for antiphospholipid syndrome per oncology.
-Eventually outpatient PET/CT to assess for cancer recurrence.
-Oncology appreciated.
-Pulmonary team appreciated.
#Elevated troponin.
-Peaked at 0.075.
-No chest pain, EKG with normal SR and no ST changes.
-Consistent with demand ischemia with RV strain.
-Echo report reviewed, LVEF 55%.
#Essential hypertension
-Continue Norvasc with hold parameter
-Continue lisinopril
#Breast cancer status post lumpectomy
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
-S/p R-CHOP completed 08/2020.
-[facility]
#DVT prophylaxis: Heparin
#Code status: DNR
Anticipated Discharge: 24 - 48 hours
Subjective/Interval History
-
Date of Service: March 03, 2024
Feel better than admission.
Not short of breath nor having any chest pain.
Voicing no specific complaints.
Objective Data
-
Labs:
Laboratory Results
03/03/24
05:51
WBC 7.0
Hgb 13.4
Hct 37.4
Plt Count 237
APTT 47.3 H
Sodium 141
Potassium 3.9
Chloride 111 H
Carbon Dioxide 17 L
BUN 13
Creatinine 0.7
Glucose 96
Calcium 8.9
Vital Signs:
Vital Signs
Temp Pulse Resp BP Pulse Ox
97.9 F 88 16 150/65 94
03/03/24 11:00 03/03/24 08:27 03/03/24 06:00 03/03/24 08:27 03/03/24 06:00
I&O
03/02/24 03/03/24 03/04/24
06:59 06:59 05:59
Intake Total 1490 / 1490 448 / 448 100 / 100
Output Total 2905 / 2905 1725 / 1725 200 / 200
Balance -1415 / -1415 -1277 / -1277 -100 / -100
Review of Systems
-
Constitutional: Denies Fever
Respiratory: Denies Cough
Abdomen/GI: Denies Abdominal Pain, Nausea or Vomiting
Neuro: Denies Dizzy
Physical Exam
-
General: No Apparent Distress
HEENT: Moist Mucous Membranes
Respiratory: Clear to Auscultation
Cardiac: Regular Rhythm and S1/S2
GI: Soft
Musculoskeletal: No Edema
Neuro: AO x 3
Psych: Calm
Data Reviewed
-
Labs: Labs Reviewed by me
--- NOTE | 2024-03-03 19:30 | PTCARENOTE ---
Received patient at 1900. Pt. awake, alert, and oriented. Denies pain/discomfort. Afebrile. Heart rhythm sinus. Blood pressure normotensive. Currently on room air. Lungs sound clear. PO diet ordered, good appetite. Voids without issue. Skin as
documented. Discussed plan of care with patient. Vital signs stable at this time.
[2024-03-03] MEDS: NON-FORMULARY ITEM 1 UNIT PO (21:11)
[2024-03-04] VITALS (15 sets, daily range): BP systolic 115–156; BP diastolic 58–93; BMI 27.3; BMI 27.7
[2024-03-04 01:23] LABS: Beta-2-Glycoprotein I Ab. IgA <10 SAU (<=20); Beta-2-Glycoprotein I Ab. IgG <10 SGU (<=20); Beta-2-Glycoprotein I Ab. IgM <10 SMU (<=20)
[2024-03-04 05:07] LABS: Hematocrit 39.9 % (37.0-47.0); Hemoglobin 14.1 g/dL (12.0-16.0); Mean Corp Hgb Conc. 35.3 g/dL (33.0-37.0); Mean Corpuscular Hgb 29.7 pg (27.0-31.0); Mean Platelet Volume 9.7 fL (7.4-10.4); Platelet Count 259 10^3/uL (130-400); Red Blood Cell Count 4.75 10^6/uL (4.20-5.40); Red Cell Dist. Width 13.9 % (11.5-14.5); White Blood Cell Count 7.5 10^3/uL (4.8-10.8)
[2024-03-04 05:31] LABS: Blood Urea Nitrogen 15 mg/dl (7-17); Calcium 9.1 mg/dl (8.4-10.2); Carbon Dioxide 18 mmol/L (22-30); Chloride 110 mmol/L (98-107); Estimated Creatinine Clearance 55 ml/min; Glucose 94 mg/dl (70-99); Potassium 4.2 mmol/L (3.5-5.1); Sodium 141 mmol/L (135-145); eGFR > 60.00
--- NOTE | 2024-03-04 06:47 | W.PN.INTV ---
Today's Communication / Plan
Recommendations
Resume lisinopril
Continue Lovenox
Consider transition to oral agent 03/05
Echocardiogram ordered 03/05
Disposition efforts
Assessment
-
78-year-old female with pmh of lymphoma and breast cancer, sudden-onset shortness of breath starting Tuesday. She was admitted due to saddle pulmonary emboli detected on outpatient CT.
Chest CT(02/28):There is a saddle embolus straddling the posterior bifurcation of the right and left main pulmonary arteries. On the right, there is embolus which extends into the right upper lobe, right middle lobe, and right lower lobe pulmonary
artery branches. on the left, there is embolus which extends into the left upper lobe lingular, and lower lobe pulmonary artery branches.The right ventricle is enlarged compared to the left ventricle, and suggests right heart strain.
# Saddle PE most likely in the setting of malignancy
Hemodynamically stable
Transition to Lovenox every 12 as of 03/02
Continue with Lovenox for now
Consider transition to oral agent on Tuesday
Would like to repeat echocardiogram on Tuesday. I ordered
# History of essential hypertension
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 Received amlodipine
-Resume lisinopril this morning
# Hypercalcemia
-Most likely in the setting of dehydration or lymphoma-resolved (currently 8.6)
# Mild leukocytosis
-Resolved
# Elevated trop and proBNP (present on admission)
-probably demand ischemia
-No chest pain, EKG normal
-Appreciate cardiology-repeat TTE on Tuesday
# hx of Lymphoma and breast cancer
Appreciate Oncology-Dr. Alvarenga visited pt
APLS serology pending
Eventual PET/CT for lymphoma staging as OP
Reviewed limitations over the first 2 weeks post discharge
Anticipate discharge 03/05 depending on clinical status
Reviewed with critical care nursing
Subjective Dataa
Subjective Data
Date of Service:
Date of Service: March 04, 2024
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
Subjective:
Patient continues to improve. Denies chest pain, shortness of breath, lightheadedness, dizziness, palpitations. Ambulating without difficulty. Moving bowels.
Objective Data
Data Reviewed
Vital Signs / I&O / Oxygen:
Vital Signs
Temp Pulse Resp BP Pulse Ox
97.6 F 70 22 127/58 94
03/04/24 04:20 03/04/24 06:00 03/03/24 09:00 03/04/24 06:00 03/04/24 04:00
Intake and Output
03/02/24 03/03/24 03/04/24
06:59 06:59 05:59
Intake Total 1490 / 1490 448 / 448 300 / 300
Output Total 2905 / 2905 1725 / 1725 800 / 800
Balance -1415 / -1415 -1277 / -1277 -500 / -500
SaO2 94
Nasal Cannula flow liters per 2
minute
Physical Exam
General: Comfortable and Good Appetite
HEENT: Normocephalic, Anicteric and Moist Mucous Membranes
Cardiovascular: S1-S2, Regular Rhythm, JVD (negative), Peripheral Edema (negative) and Calf Tenderness (negative)
Respiratory: Clear and Other (Saturating 96% on RA)
GI: Soft, Non Distended, Non Tender and Normal Bowel Sounds
Neurology: Awake, Alert, Oriented, AO x 3 and No Motor Deficits
Skin: Warm and Dry
Labs/Micro/Reports
Lab Data
03/04/24 04:55
03/04/24 04:55
[2024-03-04] MEDS: ZESTRIL PO (09:06)
[2024-03-04] MEDS: NORVASC 10 MG PO (09:07)
[2024-03-04] MEDS: LOVENOX 70 MG SC ×2 (09:07→21:21)
[2024-03-04 09:53] LABS: Lactic Acid 1.3 mmol/L (0.7-2.0)
--- NOTE | 2024-03-04 10:37 | W.PN.HOSP.TC ---
Today's Communication/Plan
-
Echo in a.m.
Transition to oral anticoagulation in a.m.
Transfer to telemetry.
Assessment / Plan
Assessment / Plan
Impression: 78-year-old female with PMH of hypertension, small B-cell lymphoma, hyperlipidemia who presented to ED on 02/28/2024 with worsening SOB and CALVILLO. CT scan positive for saddle pulmonary embolus, started on heparin drip and admitted to
ICU for further evaluation and management.
Assessment/plan:
#Acute respiratory distress due to submassive saddle pulmonary Embolism without signs of cor-pulmonale.
-Multifactorial; stasis from sedentary lifestyle, follicular lymphoma, history of breast cancer.
-Improved, recommend ambulation with PT assistance only.
-Now on room air, saturating appropriately.
-Transition AC from Lovenox in am. Repeat ECHO in am to eval RV function prior to DC.
-Encourage improved ambulation upon discharge.
-No history of miscarriage, or blood clots; evaluate for antiphospholipid syndrome per oncology.
-Eventually outpatient PET/CT to assess for cancer recurrence.
-Oncology appreciated.
-Pulmonary team appreciated.
#Elevated troponin.
-Peaked at 0.075.
-No chest pain, EKG with normal SR and no ST changes.
-Consistent with demand ischemia with RV strain.
-Echo report reviewed, LVEF 55%.
#Essential hypertension
-Continue Norvasc with hold parameter
-Continue lisinopril
#Breast cancer status post lumpectomy
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
-S/p R-CHOP completed 08/2020.
-[facility]
#DVT prophylaxis: Heparin
#Code status: DNR
Tx to tele
ECHO in am
DC planning
Anticipated Discharge: Within 24 hours
Subjective/Interval History
-
Date of Service: March 04, 2024
feeling much improved.
Denies any chest pain, shortness of breath or dizziness.
Objective Data
-
Labs:
Laboratory Results
03/04/24
04:55
WBC 7.5
Hgb 14.1
Hct 39.9
Plt Count 259
Sodium 141
Potassium 4.2
Chloride 110 H
Carbon Dioxide 18 L
BUN 15
Creatinine 0.7
Glucose 94
Calcium 9.1
Vital Signs:
Vital Signs
Temp Pulse Resp BP Pulse Ox
97.6 F 83 22 119/73 94
03/04/24 04:20 03/04/24 09:07 03/03/24 09:00 03/04/24 09:07 03/04/24 04:00
I&O
03/03/24 03/04/24 03/05/24
07:59 06:59 06:59
Intake Total
Output Total
Balance
Review of Systems
-
Constitutional: Denies Fever or Chills
EENT: Denies Sore Throat
Abdomen/GI: Denies Abdominal Pain, Nausea or Vomiting
Physical Exam
-
General: No Apparent Distress
HEENT: Moist Mucous Membranes
Respiratory: Clear to Auscultation
Cardiac: Regular Rhythm and S1/S2; Negative Tachycardic
GI: Soft
Neuro: AO x 3
Psych: Calm; Negative Confused
Data Reviewed
-
Labs: Labs Reviewed by me
--- NOTE | 2024-03-04 12:04 | PTCARENOTE ---
AAO x3; VSS; SR 80's No edema pedal pulsese present. B/L Le warm to touch. pt incontinent of bladder and bowel. self ambulatory while in a room. peripheral line left arm x 2
pt to be transfer to room 411 bed 2 TV report given to Juan.
[2024-03-04] MEDS: ZESTRIL 10 MG PO ×2 (12:14→20:35)
[2024-03-04 20:47] LABS: Cardiolipin IgA Antibody <10 APL (<=11); Cardiolipin IgM Antibody <10 MPL (<=12); Cardiolipin Igg Antibody <10 GPL (<=14)
[2024-03-05 03:25] VITALS: BP 125/66
[2024-03-05 07:30] VITALS: BP 141/71
--- NOTE | 2024-03-05 07:51 | W.PN.PUL3 ---
Today's Communication / Plan
-
Transition to NOAC, continue with Eliquis with loading dose for the first 7 days
Case management consult to assure that Eliquis is affordable
Consider repeat echo in 4-6 weeks to assure that her PASP continues to improve to <30
Outpatient heme-onc follow-up recommended, given her history of lymphoma and breast cancer and also for hypercoagulable workup
Patient being prepared for discharge home today - no additional pulmonary recommendations at this time. Pulmonary service will now sign off. Please reconsult if there are any additional questions/concerns, or if patient's respiratory status
deteriorates.
Assessment
-
78-year-old female with pmh of lymphoma and breast cancer, sudden-onset shortness of breath starting Tuesday. She was admitted due to saddle pulmonary emboli detected on outpatient CT.
Chest CT(02/28):There is a saddle embolus straddling the posterior bifurcation of the right and left main pulmonary arteries. On the right, there is embolus which extends into the right upper lobe, right middle lobe, and right lower lobe pulmonary
artery branches. on the left, there is embolus which extends into the left upper lobe lingular, and lower lobe pulmonary artery branches.The right ventricle is enlarged compared to the left ventricle, and suggests right heart strain.
Impression:
# Saddle PE most likely in the setting of malignancy
Hemodynamically stable
Being transitioned today to NOAC with Eliquis s/p lovenox
Initial echo on 02/28/2024 showed dilated RV which was hypokinetic with PASP 50-55 mmHg and mild�moderate TR; echo was repeated today showing normal RV size and function with estimated PASP 32 mmHg
# History of essential hypertension
- resume anti-hypertensives
# Hypercalcemia
- Now normalized
- C/t monitor
# Mild leukocytosis
-Resolved
# Elevated trop and proBNP (present on admission)
- demand ischemia due to saddle PE
-No chest pain, EKG normal
-repeat TTE today shows no WMA
# hx of Lymphoma and breast cancer
Appreciate Oncology-Dr. Alvarenga visited pt
APLS serology pending
Eventual PET/CT for lymphoma staging as OP
Reviewed limitations over the first 2 weeks post discharge
Patient being prepared for discharge home today. No additional pulmonary recommendations at this time. Pulmonary service will now sign off. Thank you for allowing us to be involved in the care of this patient. Please reconsult if there are any
additional questions/concerns, or if patient's respiratory status deteriorates.
Total time spent today was 36 minutes for this encounter. Time includes reviewing laboratory test/imaging results, reviewing pertinent medical records, obtaining and reviewing medical history, performing an appropriate exam, ordering medications,
tests and procedures. Time also includes documentation of this encounter, coordinating patient care and communicating with other healthcare professionals. Total time does not include separately billed tests performed on this date of service.
Subjective Data
-
Date of Service:
Date of Service: March 05, 2024
Chief Complaint: Pulmonary Follow Up and VTE Follow Up
Subjective:
Patient was seen and evaluated today at bedside. Echo done today shows normal RV size and function. No overnight events reported and she is being prepared for discharge home today. No ROGERS, abdominal pain, nausea, fevers or chills. She is on room
air breathing comfortably saturating 96%.
Review of Systems
General: Other (Negative unless mentioned above)
Objective Data
Data Reviewed
Vital Signs / I&O / Oxygen:
Vital Signs
Temp Pulse Resp BP Pulse Ox
97.9 F 76 18 125/66 96
03/05/24 03:25 03/05/24 03:25 03/05/24 03:25 03/05/24 03:25 03/05/24 03:25
Intake and Output
03/04/24 03/05/24 03/06/24
06:59 06:59 06:59
Intake Total 900 / 900
Output Total
Balance 900 / 900
SaO2 96
Nasal Cannula flow liters per 2
minute
Physical Exam
General: Respiratory Distress (negative) and Comfortable
HEENT: Normocephalic and Anicteric
Cardiovascular: S1-S2 and Peripheral Edema (negative)
Respiratory: Clear, Wheeze (negative), Crackles (negative) and Rhonchi (negative)
GI: Soft, Non Distended, Non Tender and Normal Bowel Sounds
Neurology: Awake, Alert and Tremors (negative)
Skin: Warm, Dry and Jaundice (negative)
--- NOTE | 2024-03-05 07:55 | W.PN.HOSP.TC ---
Today's Communication/Plan
-
APLS serology pending
Echo today
Transition to oral agents
Continue tele
Discharge planning
Assessment / Plan
Assessment / Plan
Impression: 78-year-old female with PMH of hypertension, small B-cell lymphoma, hyperlipidemia who presented to ED on 02/28/2024 with worsening SOB and CALVILLO. CT scan positive for saddle pulmonary embolus, started on heparin drip and admitted to
ICU for further evaluation and management.
Assessment/plan:
# Acute respiratory distress/failure secondary to saddle pulmonary Embolism without signs of cor-pulmonale.
-Respiratory distress resolved, hemodynamically stable.
-Multifactorial; stasis from sedentary lifestyle, history of follicular lymphoma.
-Transition from Lovenox to Eliquis 10 mg BID for 7 days and then 5 mg daily thereafter.
-Repeat ECHO today reports improved RV systolic function.
-Eventually outpatient PET/CT to assess for cancer recurrence.
-Oncology appreciated.
-Pulmonary team appreciated.
# Right heart strain with demand ischemia
-Troponin peaked at 0.075.
-No chest pain, EKG with normal SR and no ST changes.
-Echo report reviewed, LVEF 55%.
#Essential hypertension
-BP stable today.
-Continue Norvasc with hold parameter
-Continue lisinopril
#Breast cancer status post lumpectomy
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
-APLS serology pending.
-S/p R-CHOP completed 08/2020.
-[facility]
DVT prophylaxis: Heparin
Code status: DNR
Data:
Echo 03/05/2024:
Small LV size with normal systolic function without regional wall motion abnormality. LVEF 55-60%.
Normal RV size and function. Mild tricuspid regurgitation. Estimated PASP is at the upper limits of normal (32 mmHg).
Compared to prior echocardiogram on 02/28/2024, PASP has decreased from 50-55 mmHg to 32 mmHg. Today's study is technically limited, but on direct comparison to prior, RV looks smaller with improved systolic function.
Echo 02/28/2024:
NS
RV is dilated and hypokinetic.
Estimated PASP 50-55 mmHg, assuming RA 8 mmHg (IVC not
visualized.
LV cavity appeared small (perhaps underfill).
LVEF 55%. Mild LVH.
Mild to moderate TR.
Compared with 12/2020 MR is not seen. RV findings are new.
Anticipated Discharge: Today
Subjective/Interval History
-
Date of Service: March 05, 2024
Patient seen and examined in the room with daughter by bedside. Reports feeling better today. Denies chest pain, shortness of breath, palpitations, nausea, vomiting, diarrhea, abdominal pain, fever or chills.
Objective Data
-
Labs:
Laboratory Results
03/05/24
06:00
WBC Pending
Hgb Pending
Hct Pending
Plt Count Pending
Sodium Pending
Potassium Pending
Chloride Pending
Carbon Dioxide Pending
BUN Pending
Creatinine Pending
Glucose Pending
Calcium Pending
Vital Signs:
Vital Signs
Temp Pulse Resp BP Pulse Ox
97.9 F 76 18 125/66 96
03/05/24 03:25 03/05/24 03:25 03/05/24 03:25 03/05/24 03:25 03/05/24 03:25
I&O
03/04/24 03/05/24 03/06/24
06:59 06:59 06:59
Intake Total 900 / 900
Output Total
Balance 900 / 900
Review of Systems
-
History Source: Patient
Constitutional: Reports No Symptoms; Denies Fever, Fatigue or Chills
EENT: Reports No Symptoms Reported; Denies Sore Throat
Respiratory: Reports No Symptoms; Denies Cough, Trouble Breathing or Wheezing
Cardiac: Reports No Symptoms; Denies Chest Pain
Abdomen/GI: Denies Abdominal Pain, Nausea or Vomiting
Skin: Reports No Symptoms
Physical Exam
-
General: No Apparent Distress and Comfortable
HEENT: Moist Mucous Membranes
Respiratory: Clear to Auscultation; Negative Wheezes, Rales or Crackles
Cardiac: Regular Rhythm and S1/S2; Negative Tachycardic
GI: Soft
Skin: Warm
Neuro: Awake, Alert and AO x 3
Psych: Calm and Intact Judgement/Insight; Negative Confused
Data Reviewed
-
Diagnostic Radiology: Image personally visualized and interpreted, Report Reviewed by me and Discussed with Physician
Ultrasound: Image personally visualized and interpreted, Report Reviewed by me and Discussed with Physician
Labs: Labs Reviewed by me and Discussed with Physician
Old Records: Reviewed
[2024-03-05] MEDS: NORVASC 10 MG PO (08:46)
[2024-03-05] MEDS: ELIQUIS 10 MG PO (08:46)
[2024-03-05] MEDS: ZESTRIL 10 MG PO (08:46)
[2024-03-05 09:36] LABS: Hematocrit 40.8 % (37.0-47.0); Hemoglobin 14.2 g/dL (12.0-16.0); Mean Corp Hgb Conc. 34.8 g/dL (33.0-37.0); Mean Corpuscular Hgb 30.1 pg (27.0-31.0); Mean Corpuscular Volume 86.6 fL (81.0-99.0); Mean Platelet Volume 10.1 fL (7.4-10.4); Platelet Count 288 10^3/uL (130-400); Red Blood Cell Count 4.71 10^6/uL (4.20-5.40); Red Cell Dist. Width 14.2 % (11.5-14.5)
[2024-03-05 10:05] VITALS: BP 133/77; PULSE 83; O2SAT 98
[2024-03-05 10:17] LABS: Blood Urea Nitrogen 14 mg/dl (7-17); Calcium 9.2 mg/dl (8.4-10.2); Carbon Dioxide 19 mmol/L (22-30); Chloride 106 mmol/L (98-107); Estimated Creatinine Clearance 49 ml/min; Glucose 88 mg/dl (70-99); Potassium 3.9 mmol/L (3.5-5.1); Sodium 141 mmol/L (135-145); eGFR > 60.00
[2024-03-05 11:06] VITALS: BP 126/71
--- NOTE | 2024-03-05 12:18 | CM ---
Addendum entered by Darian Gomez 03/05/24 14:31:
Spoke w/ [facility]. Eliquis would cost $47 for 30 days for pt
Resident updated
Addendum entered by Darian Gomez 03/05/24 12:34:
Per resident, script for walker was provided to pt
VN/PT order requested
Check Eliquis coverage. Eliquis is not covered. Xarelto is $47/month. Resident updated
Original Note:
Pt seen bedside.
CM discussed PT rec. for HH. Pt initially denied as she lives w/ her daughter who assists her.
Pt did agree to VN for just home PT. Pt indicated that she just wants them to come one time.
[facility] referral completed, liaison made aware via TT.
Pt has transport home at d/c
TT hospitalist to confirm d/c today
Plan: Home w/ [facility]
--- NOTE | 2024-03-05 12:46 | VNURNOTE ---
VN liaison spoke with patient. Explained services and typical schedule. Offered VN in addition to PT. Patient declining visiting nurse and only wants one PT visit. 'I know I need to walk, they don't need to show me anything else.' Explained not
typical for a home PT to only make one visit. Patient verbalized understanding and is declining at this time. VN Intake notified.
[2024-03-05 15:09] VITALS: BP 115/83
--- NOTE | 2024-03-05 15:55 | W.PN.UPDATE ---
Update Note
Progress Note Update
Female with shortness of breath
I personally performed a history and physical exam of the patient and discussed management with the resident. I reviewed the resident's note and agree with the documented findings and plan of care except for changes in documentation
Small LV size and normal systolic function.� EF 55 to 60%.� Normal RV size and function.� Mild TR.� PA systolic pressure.
[facility]: S1-S2 normal
Chest: CTA B/L
Abdomen: Soft, NT / Bowel sounds present
Extremities: No edema, normal pulses
OPTOMETRIC TECHNICIAN: Non focal exam
#Acute respiratory distress and acute respiratory failure secondary to PE without signs of cor pulmonale
Likely from sedentary lifestyle,H/O Follicular lymphoma
Acute occlusive DVT in the left popliteal vein and left peroneal vein
Echo without RV strain
Evaluate for antiphospholipid antibody syndrome per oncology as outpatient
Outpatient PET scan
Pulmonary and oncology evaluation appreciated
Continue anticoagulation with Eliquis
# Elevated troponin peaked at 0.07
Likely secondary to demand ischemia and RV strain
No wall motion abnormalities
# Hypertension-continue Norvasc and lisinopril
# History of L breast cancer status postlumpectomy in the past
# History of follicle or high-grade lymphoma
S/p R-CHOP completed 08/2020.
[facility]
# Thyroid Nodule-OP Follow up
# DVT prophylaxis-Eliquis
# DNR
D/W Daughter at bed side
D/W RN
Discussed with patient and daughter regarding Coumadin versus other medicines. Both prefer Eliquis over Coumadin.
Discussed with case management. Eliquis is covered with $47 co-pay
More than 30 minutes spent in discharge including
Final examination of the patient
Summarizing hospital stay
Instructions for continuing care to all relevant caregivers
Preparation of discharge records, prescriptions, and referral forms
Total time spent (in minutes): 34 min
Part of this note was created using voice recognition system. Occasional wrong word or��sound alike� substitutions may have inadvertently occurred due to the inherent limitations of voice recognition software. If noted kindly bring it to my
attention for correction.
--- NOTE | 2024-03-05 19:11 | W.DCSUMMARY ---
Discharge Summary
Discharge Data
Date of Admission: 02/28/24
Date of Discharge: 03/05/24
-
Pending Results: Yes
Additional Pending Results:
Phosphatidylserine IgG, IgA IgM
Hospital Course
Discharging Physician : Hugh Bailey MD ; Jerrod Marquez MD
Disposition : Home with VN
Primary care physician : Maggie Pressley
Principal Discharge diagnosis : Acute respiratory distress/failure, PE without cor pulmonale, elevated troponin with RV strain
Chronic Discharge diagnosis : Essential hypertension, history of follicular lymphoma.
Hospital Course : Patient is an 78-year-old woman with PMH of essential hypertension, hyperlipidemia, osteoporosis, vascular lymphoma, right breast cancer, who presented to ED on 02/28/2024 with worsening shortness of breath and CALVILLO. While in
the ED, her troponin and BNP were elevated, CBC and CMP are unremarkable and EKG showed sinus tachycardia. CT angiography showed saddle embolus on the posterior bifurcation of right and left main pulmonary arteries. Patient was started on heparin
drip and admitted to ICU for further evaluation and management.
While in the hospital, patient was seen and evaluated by oncology, pulmonology and cardiology. She was later transition to Lovenox while hide respiratory symptoms continue to improve. Her initial echo on 02/27 showed dilated right ventricle with
hypokinesia and PASP of 50 to 55 mmHg.
Patient has been evaluated and is hemodynamically stable, her echo today shows PASP of 32 mmHg. She is awake, alert and oriented x3, answer question properly, able to make own decision and take care of activities of daily living, speech clear and
comprehensive, continent of the bowel and bladder, ambulate with walker but without assistance. Her anticoagulation has been transitioned to Eliquis with detailed dose instructions. Detailed dose instructions. Patient has been advised to
follow-up with primary care physician in less than 1 week, and to repeat echo in 4 to 6 weeks to reassure continued improvement of PASP and to follow-up outpatient heme-onc due to history of lymphoma and breast cancer for hypercoagulable workup.
Important imaging findings :
Chest CT 02/24/2024:
Examination is positive for pulmonary embolism as described. Findings discussed with Dr. Pressley. Findings also discussed with the patient and her daughter, and they are being escorted to the emergency department.
Peripheral vascular sound 03/01/2024:
There is occlusive thrombus within the left popliteal vein. There is occlusive thrombus in the proximal peroneal veins on the left. Mid to distal left peroneal vein shows nonocclusive thrombus. The bilateral deep venous systems otherwise show normal
grayscale appearance and compressibility, normal conventional Doppler waveform with appropriate response to respiration and augmentation, and normal color flow Doppler signal.
Discharge Plan
-
Patient Disposition: Home with Home Care
Discharge Diagnosis/Procedures: Submassive saddle PE, essential hypertension, history of breast cancer, history of follicular high-grade lymphoma, DVT.
Condition: Good
Diet: Regular
Activity: With Walker
Driving Restrictions: No driving for 2 weeks
Bathing Restrictions: None
Blood Work: CBC 3-4 weeks
Other Services: VN and PT
Activity Restrictions/Additional Instructions:
Eliquis 10 mg twice a day for 14 more doses and then after that 5 mg twice a day. You need to continue this until you are told otherwise by Dr. Alvarenga. You can bleed more with injuries. Therefore need to be careful.
Outpatient follow-up for thyroid nodule
Part of the testing for antiphospholipid antibody syndrome pending at discharge. Follow-up with Dr. Alvarenga for results.
Referrals:
Norman Zee MD [Active] - in six weeks (6 weeks (walk test))
Miles Avlarenga DO [Active] - in one to two months
Maggie Pressley MD [Family Provider] - in less than 1 week
Prescriptions:
New
Eliquis DVT-PE Treat 30D Start 5 mg (74 tabs) tablets,dose pack
See Rx Instructions .ROUTE .COMPLEX Qty: 74 0RF
Rx Instructions:
orally per package directions
Continued
lisinopril 40 MG tablet
40 mg PO DAILY
omega 0-uil-bmi-fish oil [Fish Oil] 1 EACH capsule
1 ea PO BID
PreserVision AREDS 2,148 mcg-113 mg-45 mg-17.4mg Tablet
1 tab PO BID Qty: 0
Ca-D3-mag uk-rbwr-lrr-ricardo-bor [Calcium 600-D3 Plus (mag-zinc)] 1 EACH tablet
1 ea PO BID
amlodipine 10 MG tablet
10 mg PO DAILY
therapeutic multivitamin Tablet
1 tab PO DAILY
coenzyme Q10 [Co Q-10] 100 mg Capsule
100 mg PO DAILY
Prolia 60 mg/mL Syringe
60 mg SC [id number]
Patient Comments:
02/28/2024: Due Mar 12 2024
red yeast rice 600 mg Tablet
600 mg PO DAILY
Discharge Orders:
Discharge Patient (As Directed); Ordered 03/05/24
Ordered By: Jerrod Marquez
Discharge Date and Time
Discharge Date/Time: 03/05/24 16:20
Print Language: SWEDISH
[2024-03-05 22:01] LABS: Phosphatidylserine Ab, IgA 0 APS (0-19); Phosphatidylserine Ab, IgG 0 GPS (0-15); Phosphatidylserine Ab, IgM 0 MPS (0-21)
--- NOTE | 2024-03-05 23:54 | W.PN.ONC2 ---
Today's Communication / Plan
-
Will endeavor to arrange outpt PET prior to next follow up visit.
Impression
Impression
DVT/PE
Follicular lymphoma
Plan
Plan
Continue to monitor CBC
Will need outpatient PET CT scan restaging as a means of restaging lymphoma
Continue aggressive anticoagulation
Reasonable to convert to DOAC
Evaluate for APL - pending
Subjective/Objective
Chief Complaint
Heme/Onc Follow up of DVT, follicular lymphoma
Subjective
Pt seen earlier today.
Denies complaint.
Vital Signs:
Vital Signs
Temp Pulse Resp BP Pulse Ox
98.6 F 76 16 115/83 94
03/05/24 15:09 03/05/24 15:09 03/05/24 15:09 03/05/24 15:09 03/05/24 15:09
Lab Results:
Laboratory Data
WBC 7.0 10^3/uL (4.8-10.8) 03/05/24 09:05
Hgb 14.2 g/dL (12.0-16.0) 03/05/24 09:05
Plt Count 288 10^3/uL (130-400) 03/05/24 09:05
PT 13.3 Sec (11.4-14.6) 02/28/24 17:15
INR 1.03 02/28/24 17:15
APTT 47.3 Sec (23.4-35.0) H 03/03/24 05:51
eGFR > 60.00 03/05/24 09:05
== END 2024-03-05 16:20 | disposition home health service (06) | DRG 175 ==
LOC: 4 EAST ACU 19:32
PROVIDERS: Internal Medicine; Registered Nurse; Student in an Organized Health Care Education/Training Program; ADMITTING PHYSICIAN Internal Medicine; ATTENDING PHYSICIAN Hospitalist; CONSULT PHYSICIAN Internal Medicine; CONSULT PHYSICIAN Internal Medicine Critical Care Medicine; EMERGENCY PHYSICIAN Emergency Medicine; FAMILY PHYSICIAN Family Medicine; OTHER PHYSICIAN Internal Medicine Hematology & Oncology
DX: I26.92 Saddle embolus of pulmonary artery without acute cor pulmonale (principal); J96.00 Acute respiratory failure, unspecified whether with hypoxia or hypercapnia; I5A Non-ischemic myocardial injury (non-traumatic); I82.432 Acute embolism and thrombosis of left popliteal vein; I82.452 Acute embolism and thrombosis of left peroneal vein; Z66 Do not resuscitate; E78.00 Pure hypercholesterolemia, unspecified; I35.1 Nonrheumatic aortic (valve) insufficiency; I10 Essential (primary) hypertension; M81.0 Age-related osteoporosis without current pathological fracture; I95.9 Hypotension, unspecified; E83.52 Hypercalcemia; D72.829 Elevated white blood cell count, unspecified; E04.1 Nontoxic single thyroid nodule; Z85.72 Personal history of non-Hodgkin lymphomas; Z88.2 Allergy status to sulfonamides; Z88.0 Allergy status to penicillin; Z92.21 Personal history of antineoplastic chemotherapy; Z85.3 Personal history of malignant neoplasm of breast; Z79.899 Other long term (current) drug therapy
CPT/HCPCS: 71045; 80048; 83605; 83880; 84484; 85025; 85027; 85379; 85610; 85730; 86146; 86147; 86148; 93005; 93306; 93970; 96374; 96376; 97116; 97163; 97167; 97535; 99291

== ENCOUNTER → 2024-03-23 11:40 | Outpatient (REF) | payer MEDICARE, SELFPAY ==
[2024-03-23 12:45] LABS: % Basophils 0.3 % (0-2); % Eosinophils 0.4 % (0-6); % Immature Granulocytes 0.3 % (0-0.5); % Lymphocytes 18.2 % (20.5-51.1); % Monocytes 5.8 % (1.7-9.3); Absolute Lymphocytes 1.4 10^3/uL (1.2-3.4); Absolute Monocytes 0.4 10^3/uL (0.1-0.6); Absolute Neutrophils 5.7 10^3/uL (1.4-6.5); Hematocrit 45.7 % (37.0-47.0); Mean Corp Hgb Conc. 32.8 g/dL (33.0-37.0); Mean Corpuscular Hgb 29.9 pg (27.0-31.0); Mean Platelet Volume 9.7 fL (7.4-10.4); Nucleated Red Blood Cells % 0 %; Platelet Count 332 10^3/uL (130-400); Red Blood Cell Count 5.02 10^6/uL (4.20-5.40); Red Cell Dist. Width 14.6 % (11.5-14.5); White Blood Cell Count 7.6 10^3/uL (4.8-10.8)
[2024-03-23 14:25] LABS: Blood Urea Nitrogen 11 mg/dl (7-17); HDL Cholesterol 87 mg/dl; LDH 197 U/L (120-246); LDL Cholesterol, Calculated 155 mg/dl; Total Cholesterol 273 mg/dl (50-199); Triglyceride 159 mg/dl (10-149); Very Low Density Lipoprotein 31 mg/dl (0-30)
[2024-03-23 14:51] LABS: TSH Reflex To Free T4 0.83 uIU/ml (0.47-4.68)
== END ==
LOC: REG 11:40
PROVIDERS: ATTENDING PHYSICIAN Family Medicine; FAMILY PHYSICIAN Internal Medicine Hematology & Oncology
DX: C50.411 Malignant neoplasm of upper-outer quadrant of right female breast (principal); C85.89 Other specified types of non-Hodgkin lymphoma, extranodal and solid organ sites; M80.08XA Age-related osteoporosis with current pathological fracture, vertebra(e), initial encounter for fracture; E78.00 Pure hypercholesterolemia, unspecified
CPT/HCPCS: 36415; 80061; 82565; 83615; 84443; 84520; 85025

== ENCOUNTER → 2024-05-16 14:32 | Outpatient (REF) | payer MEDICARE, SELFPAY | LOC: RCS 14:32 | PROVIDERS: ATTENDING PHYSICIAN Family Medicine; REFERRING PHYSICIAN Internal Medicine | DX: R06.09 Other forms of dyspnea (principal); I35.1 Nonrheumatic aortic (valve) insufficiency | CPT/HCPCS: 93306 ==

== ENCOUNTER → 2024-05-22 17:48 | Outpatient (REF) | payer MEDICARE, SELFPAY | LOC: WDC 17:48 | PROVIDERS: ATTENDING PHYSICIAN Internal Medicine Hematology & Oncology; FAMILY PHYSICIAN Family Medicine | DX: Z12.31 Encounter for screening mammogram for malignant neoplasm of breast (principal) | CPT/HCPCS: 77063; 77067 ==

== ENCOUNTER → 2024-05-30 08:38 | Outpatient (REF) | payer MEDICARE, SELFPAY | LOC: WDC 08:38 | PROVIDERS: ATTENDING PHYSICIAN Internal Medicine Hematology & Oncology; FAMILY PHYSICIAN Family Medicine | DX: R92.8 Other abnormal and inconclusive findings on diagnostic imaging of breast (principal) | CPT/HCPCS: 76642 ==

== ENCOUNTER → 2024-06-22 08:13 | Outpatient (REF) | payer MEDICARE, SELFPAY ==
[2024-06-22 09:06] LABS: % Basophils 0.5 % (0-2); % Eosinophils 2.9 % (0-6); % Immature Granulocytes 0.2 % (0-0.5); % Lymphocytes 22.6 % (20.5-51.1); % Neutrophils 65.8 % (42.2-75.2); Absolute Eosinophils 0.2 10^3/uL (0-0.7); Absolute Lymphocytes 1.4 10^3/uL (1.2-3.4); Absolute Monocytes 0.5 10^3/uL (0.1-0.6); Absolute Neutrophils 4.1 10^3/uL (1.4-6.5); Hematocrit 43.8 % (37.0-47.0); Hemoglobin 14.6 g/dL (12.0-16.0); Mean Corp Hgb Conc. 33.3 g/dL (33.0-37.0); Mean Corpuscular Hgb 29.6 pg (27.0-31.0); Mean Corpuscular Volume 88.8 fL (81.0-99.0); Mean Platelet Volume 9.6 fL (7.4-10.4); Nucleated Red Blood Cells % 0 %; Platelet Count 294 10^3/uL (130-400); Red Blood Cell Count 4.93 10^6/uL (4.20-5.40); Red Cell Dist. Width 14.6 % (11.5-14.5); White Blood Cell Count 6.2 10^3/uL (4.8-10.8)
[2024-06-22 09:25] LABS: D-Dimer < 0.27 ug/mlFEU (0.00-0.50)
[2024-06-22 09:41] LABS: LDH 181 U/L (120-246)
== END ==
LOC: REG 08:13
PROVIDERS: ATTENDING PHYSICIAN Internal Medicine Hematology & Oncology; FAMILY PHYSICIAN Family Medicine
DX: C50.411 Malignant neoplasm of upper-outer quadrant of right female breast (principal); C85.89 Other specified types of non-Hodgkin lymphoma, extranodal and solid organ sites; M80.08XA Age-related osteoporosis with current pathological fracture, vertebra(e), initial encounter for fracture; I26.99 Other pulmonary embolism without acute cor pulmonale
CPT/HCPCS: 36415; 83615; 85025; 85379

== ENCOUNTER → 2024-08-20 08:28 | Outpatient (REF) | payer MEDICARE, SELFPAY ==
[2024-08-20 09:14] LABS: % Basophils 0.6 % (0-2); % Immature Granulocytes 0.2 % (0-0.5); % Lymphocytes 22.2 % (20.5-51.1); % Monocytes 10.4 % (1.7-9.3); % Neutrophils 64.6 % (42.2-75.2); Absolute Eosinophils 0.1 10^3/uL (0-0.7); Absolute Lymphocytes 1.5 10^3/uL (1.2-3.4); Absolute Monocytes 0.7 10^3/uL (0.1-0.6); Absolute Neutrophils 4.2 10^3/uL (1.4-6.5); Hematocrit 44.9 % (37.0-47.0); Hemoglobin 15.2 g/dL (12.0-16.0); Mean Corp Hgb Conc. 33.9 g/dL (33.0-37.0); Mean Corpuscular Volume 88.7 fL (81.0-99.0); Mean Platelet Volume 9.8 fL (7.4-10.4); Nucleated Red Blood Cells % 0 %; Platelet Count 274 10^3/uL (130-400); Red Blood Cell Count 5.06 10^6/uL (4.20-5.40); Red Cell Dist. Width 14.7 % (11.5-14.5); White Blood Cell Count 6.5 10^3/uL (4.8-10.8)
[2024-08-20 09:39] LABS: ALT (SGPT) 11 U/L (0-35); AST (SGOT) 18 U/L (14-36); Albumin 4.9 g/dl (3.5-5.0); Alkaline Phosphatase 61 U/L (38-126); Blood Urea Nitrogen 15 mg/dl (7-17); Calcium 10.2 mg/dl (8.4-10.2); Carbon Dioxide 24 mmol/L (22-30); Chloride 106 mmol/L (98-107); Glucose 99 mg/dl (70-99); HDL Cholesterol 88 mg/dl; LDL Cholesterol, Calculated 142 mg/dl; Potassium 4.9 mmol/L (3.5-5.1); Sodium 144 mmol/L (135-145); Total Bilirubin 0.7 mg/dl (0.2-1.3); Total Cholesterol 260 mg/dl (50-199); Total Protein 7.3 g/dl (6.3-8.2); Triglyceride 152 mg/dl (10-149); Very Low Density Lipoprotein 30 mg/dl (0-30)
== END ==
LOC: REG 08:28
PROVIDERS: ATTENDING PHYSICIAN Family Medicine
DX: E78.00 Pure hypercholesterolemia, unspecified (principal)
CPT/HCPCS: 36415; 80053; 80061; 85025

== ENCOUNTER → 2025-01-02 08:11 | Outpatient (REF) | payer MEDICARE, SELFPAY ==
[2025-01-02 09:56] LABS: Hematocrit 42.2 % (37.0-47.0); Hemoglobin 14.2 g/dL (12.0-16.0); Mean Corp Hgb Conc. 33.6 g/dL (33.0-37.0); Mean Corpuscular Volume 89.8 fL (81.0-99.0); Nucleated Red Blood Cells % 0 %; Platelet Count 278 10^3/uL (130-400); Red Cell Dist. Width 14.6 % (11.5-14.5)
[2025-01-02 10:39] LABS: ALT (SGPT) 11 U/L (0-35); AST (SGOT) 19 U/L (14-36); Albumin 4.5 g/dl (3.5-5.0); Alkaline Phosphatase 42 U/L (38-126); Blood Urea Nitrogen 20 mg/dl (7-17); Calcium 10.4 mg/dl (8.4-10.2); Carbon Dioxide 24 mmol/L (22-30); Chloride 108 mmol/L (98-107); Glucose 91 mg/dl (70-99); LDH 166 U/L (120-246); Potassium 5.0 mmol/L (3.5-5.1); Sodium 138 mmol/L (135-145); Total Protein 6.9 g/dl (6.3-8.2); eGFR > 60.00
== END ==
LOC: REG 08:11
PROVIDERS: ATTENDING PHYSICIAN Internal Medicine Hematology & Oncology; FAMILY PHYSICIAN Family Medicine
DX: C50.411 Malignant neoplasm of upper-outer quadrant of right female breast (principal); C85.89 Other specified types of non-Hodgkin lymphoma, extranodal and solid organ sites; M80.08XA Age-related osteoporosis with current pathological fracture, vertebra(e), initial encounter for fracture; I26.99 Other pulmonary embolism without acute cor pulmonale; N18.31 Chronic kidney disease, stage 3a
CPT/HCPCS: 36415; 80053; 83615; 85025

== ENCOUNTER → 2025-01-25 08:50 | Outpatient (REF) | payer MEDICARE, SELFPAY ==
[2025-01-25 09:53] LABS: D-Dimer 0.36 ug/mlFEU (0.00-0.50)
== END ==
LOC: REG 08:50
PROVIDERS: ATTENDING PHYSICIAN Internal Medicine Hematology & Oncology; FAMILY PHYSICIAN Family Medicine
DX: C50.411 Malignant neoplasm of upper-outer quadrant of right female breast (principal); C85.89 Other specified types of non-Hodgkin lymphoma, extranodal and solid organ sites; M80.08XA Age-related osteoporosis with current pathological fracture, vertebra(e), initial encounter for fracture; I26.99 Other pulmonary embolism without acute cor pulmonale
CPT/HCPCS: 36415; 85379

== ENCOUNTER → 2025-02-25 15:09 | Outpatient (REF) | payer MEDICARE, SELFPAY ==
[2025-02-25 17:25] LABS: D-Dimer 0.34 ug/mlFEU (0.00-0.50)
== END ==
LOC: REG 15:09
PROVIDERS: ATTENDING PHYSICIAN Internal Medicine Hematology & Oncology; FAMILY PHYSICIAN Family Medicine
DX: C50.411 Malignant neoplasm of upper-outer quadrant of right female breast (principal); C85.89 Other specified types of non-Hodgkin lymphoma, extranodal and solid organ sites; M80.08XA Age-related osteoporosis with current pathological fracture, vertebra(e), initial encounter for fracture; I26.99 Other pulmonary embolism without acute cor pulmonale
CPT/HCPCS: 36415; 85379

== ENCOUNTER → 2025-03-27 09:33 | Outpatient (REF) | payer MEDICARE, SELFPAY ==
[2025-03-27 10:59] LABS: D-Dimer 0.34 ug/mlFEU (0.00-0.50)
== END ==
LOC: REG 09:33
PROVIDERS: ATTENDING PHYSICIAN Internal Medicine Hematology & Oncology; FAMILY PHYSICIAN Family Medicine
DX: C50.411 Malignant neoplasm of upper-outer quadrant of right female breast (principal); C85.89 Other specified types of non-Hodgkin lymphoma, extranodal and solid organ sites; M80.08XA Age-related osteoporosis with current pathological fracture, vertebra(e), initial encounter for fracture; I26.99 Other pulmonary embolism without acute cor pulmonale
CPT/HCPCS: 36415; 85379

== ENCOUNTER → 2025-04-29 09:40 | Outpatient (REF) | payer MEDICARE, SELFPAY ==
[2025-04-29 10:49] LABS: Hematocrit 43.1 % (37.0-47.0); Hemoglobin 14.4 g/dL (12.0-16.0); Mean Corp Hgb Conc. 33.4 g/dL (33.0-37.0); Mean Corpuscular Volume 89.8 fL (81.0-99.0); Nucleated Red Blood Cells % 0 %; Platelet Count 279 10^3/uL (130-400); Red Cell Dist. Width 14.9 % (11.5-14.5)
[2025-04-29 10:59] LABS: D-Dimer < 0.27 ug/mlFEU (0.00-0.50)
[2025-04-29 11:14] LABS: LDH 186 U/L (120-246)
== END ==
LOC: REG 09:40
PROVIDERS: ATTENDING PHYSICIAN Internal Medicine Hematology & Oncology; FAMILY PHYSICIAN Family Medicine
DX: C50.411 Malignant neoplasm of upper-outer quadrant of right female breast (principal); C85.89 Other specified types of non-Hodgkin lymphoma, extranodal and solid organ sites; M80.08XA Age-related osteoporosis with current pathological fracture, vertebra(e), initial encounter for fracture; I26.99 Other pulmonary embolism without acute cor pulmonale
CPT/HCPCS: 36415; 83615; 85025; 85379